=== PATIENT | female | born 1935 | race Caucasian/White ===

== ENCOUNTER → 2017-02-21 | Outpatient (CLI) | payer MEDICARE ==
--- NOTE | 2017-02-21 13:37 | MR ---
EXAMINATION TYPE: MR brain wo con DATE OF EXAM: 02/21/2017 COMPARISON: NONE HISTORY: mild cognitive impairment, dementia T1-weighted sagittal, T2, FLAIR, and diffusion axial, and T2 coronal coronal views of the brain are s ubmitted. There is no evidence of acute ischemia. There is no mass effect. Craniocervical junction maintained. Sella turcica has a normal appearance. Moderate generalized degenerative change with extensive abnormal signal throughout the white matter b ilaterally nonspecific pattern but most typical remote microvascular ischemia. Changes of chronic sinusitis noted. Abnormal signal within the veronica on the right may be artifactual due to motion with alternatively coul d be secondary to tiny area of remote ischemia. Changes of chronic sinusitis noted. No cerebellopontine angle mass. IMPRESSION: 1. Extensive diffuse white matter signal and degenerative change. White matter findings most typical of extensive remote ischemic white matter change.
== END | disposition home or self-care (01) ==
LOC: RADMRIMAIN 12:30
PROVIDERS: ATTEND Psychiatry & Neurology Neurology
DX: R90.82 White matter disease, unspecified (principal); G31.9 Degenerative disease of nervous system, unspecified
CPT/HCPCS: 70551

== ENCOUNTER → 2017-05-18 | Outpatient (CLI) | payer MEDICARE | END | disposition home or self-care (01) | LOC: LABWHC1 12:06 | PROVIDERS: ATTEND Psychiatry & Neurology Neurology | DX: G62.9 Polyneuropathy, unspecified (principal) | CPT/HCPCS: 36415; 82607 ==

== ENCOUNTER → 2017-05-20 | Outpatient (CLI) | payer MEDICARE ==
--- NOTE | 2017-05-20 12:52 | CT ---
EXAMINATION TYPE: CT brain wo con DATE OF EXAM: 05/20/2017 COMPARISON: Correlation MRI 02/21/2017 HISTORY: 82-year-old female Dizziness TECHNIQUE: Examination was done in axial plane without intravenous contrast. Coronal and sagittal r econstructions performed. CT DLP: 1064 mGycm Automated exposure control for dose reduction was used. FINDINGS: There is no evidence of acute intracranial hemorrhage, acute ischemic changes, mass, mass-effect, or extra-axial fluid collection. There is no effacement of cerebral sulci or basal subarachnoid cister ns. There is no midline shift. Conklin-white matter distinction is preserved. [id number] generalized supratentorial volume loss especially central cerebral atrophy with seco ndary mild prominence to the ventricular system. Moderate to severe confluent white matter hypodensit ies as seen on MRI. Paranasal sinuses and mastoid air cells are well pneumatized. Orbits and globes are intact. IMPRESSION: No acute intracranial abnormality seen. Central cerebral atrophy with secondary mild prominence to th e ventricular system. Moderate to severe confluent white matter changes as seen on MRI, likely relati ng to chronic small vessel ischemic disease.
--- NOTE | 2017-05-20 13:52 | US ---
EXAMINATION TYPE: US carotid duplex BILAT DATE OF EXAM: 05/20/2017 COMPARISON: NONE CLINICAL HISTORY: R55 NEAR SYNCOPE. Near Syncope EXAM MEASUREMENTS: RIGHT: Peak Systolic Velocity (PSV) cm/sec ----- Right CCA: 53.9 ----- Right ICA: 67.4 ----- Right ECA: 73.0 ICA/CCA ratio: 1.3 RIGHT: End Diastole cm/sec ----- Right CCA: 12.5 ----- Right ICA: 19.7 ----- Right ECA: 9.3 LEFT: Peak Systolic Velocity (PSV) cm/sec ----- Left CCA: 37.5 ----- Left ICA: 148.1 ----- Left ECA: 46.1 ICA/CCA ratio: 3.9 LEFT: End Diastole cm/sec ----- Left CCA: 12.5 ----- Left ICA: 44.6 ----- Left ECA: 6.1 VERTEBRALS (direction of flow): Right Vertebral: Antegrade Left Vertebral: Antegrade No significant stenosis seen, elevated velocities left ICA due to tortuosity IMPRESSION: No evidence for hemodynamically significant stenosis. Criteria for Assigning % of Stenosis / Diameter reduction (Estimation based on the indirect measurements of the internal carotid artery velocities (ICA PSV). 1. Normal (no stenosis)=ICA PSV < 125 cm/s: ratio < 2.0: ICA EDV<40 cm/s. 2. Less than 50% stenosis=ICA PSV < 125 cm/s: ratio < 2.0: ICA EDV<40 cm/s. 3. 50 to 69% stenosis=ICA PSV of 125 to 230 cm/s: ration 2.0 ? 4.0: ICA EDV 40-100 cm/s. 4. Greater than 70% stenosis to near occlusion= ICA PSV > 230 cm/s: ratio > 4.0: ICA EDV > 100 cm/s. 5. Near occlusion= ICA PSV velocities may be low or undetectable: variable ratio and ICA EDV. 6. Total occlusion=unable to detect flow.
--- NOTE | 2017-05-21 06:59 | ECHOF ---
Referral Reason:R55 near syncope MEASUREMENTS -------- HEIGHT: 167.6 cm WEIGHT: 54.4 kg BP: 197/86 RVIDd: 3.0 cm (< 3.3) IVSd: 1.0 cm (0.6 - 1.1) LVIDd: 3.7 cm (3.9 - 5.3) LVPWd: 1.1 cm (0.6 - 1.1) IVSs: 1.7 cm LVIDs: 2.4 cm LVPWs: 1.5 cm LA Diam: 3.1 cm (2.7 - 3.8) LAESV Index (A-L): 25.01 ml/m Ao Diam: 3.3 cm (2.0 - 3.7) AV Cusp: 2.0 cm (1.5 - 2.6) MV EXCURSION: 16.399 mm (> 18.000) MV EF SLOPE: 82 mm/s (70 - 150) EPSS: 0.4 cm MV E Geovany: 0.63 m/s MV DecT: 385 ms MV A Geovany: 0.69 m/s MV E/A Ratio: 0.92 RAP: 5.00 mmHg RVSP: 26.36 mmHg FINDINGS -------- Sinus rhythm. This was a technically good study. The left ventricular size is normal. There is borderline concentric left ventricular hypertrophy. Overall left ventricular systolic function is normal with, an EF between 55 - 60 %. The right ventricle is normal in size. Normal LA size by volume 22+/-6 ml/m2. The right atrium is normal in size. There is mild aortic valve sclerosis. There is trace mitral regurgitation. Mild tricuspid regurgitation present. Right ventricular systolic pressure is normal at < 35 mmHg. Trace/mild (physiologic) pulmonic regurgitation. The aortic root size is normal. Normal inferior vena cava with normal inspiratory collapse consistent with estimated right atrial pressure of 5 mmHg. There is no pericardial effusion. CONCLUSIONS -------- 1. Sinus rhythm. 2. There is trace mitral regurgitation. 3. Mild tricuspid regurgitation present. 4. Right ventricular systolic pressure is normal at < 35 mmHg. 5. Trace/mild (physiologic) pulmonic regurgitation. 6. The aortic root size is normal. 7. Normal inferior vena cava with normal inspiratory collapse consistent with estimated right atrial pressure of 5 mmHg. 8. There is no pericardial effusion. 9. This was a technically good study. 10. The left ventricular size is normal. 11. There is borderline concentric left ventricular hypertrophy. 12. Overall left ventricular systolic function is normal with, an EF between 55 - 60 %. 13. The right ventricle is normal in size. 14. Normal LA size by volume 22+/-6 ml/m2. 15. The right atrium is normal in size. 16. There is mild aortic valve sclerosis. PROGRAM MANAGEMENT SPECIALIST: Candy Rivero RDCS
== END | disposition home or self-care (01) ==
LOC: RADECHMAIN 11:34
PROVIDERS: ATTEND Family Medicine
DX: G31.9 Degenerative disease of nervous system, unspecified (principal); R90.82 White matter disease, unspecified
CPT/HCPCS: 70450; 93306; 93880

== ENCOUNTER 2018-12-13 12:28 | Inpatient (IN) | payer MEDICARE ==
[2018-12-13] MEDS ORDERED: SODIUM CHLORIDE 0.9% 1,000 ML IV STA ×2 (12:34→13:15)
--- NOTE | 2018-12-13 12:45 | CT ---
EXAMINATION TYPE: CODE STROKE: CT brain wo contr DATE OF EXAM: 12/13/2018 COMPARISON: 05/20/2017 HISTORY: Code Stroke CT DLP: 1099.[address] of the brain was performed. The ventricles, basal cisterns and sulci overlying the cerebral convexities demonstrate mild to moder ate enlargement. There is no evidence for intracranial hemorrhage or sulcal effacement. There is decreased attenuation about the periventricular white matter and deep white matter of both c erebral hemispheres, compatible with chronic small vessel ischemia. Differential diagnosis does inclu de demyelination. No mass effects are seen.No midline shift. Osseous calvarium is intact. If symptoms persist consider MRI. IMPRESSION: 1. Age related atrophic and chronic small vessel ischemic change without acute intracranial process s een at this time.
[2018-12-13] MEDS ORDERED: SODIUM CHLORIDE 0.9% 500 ML 500 ML IV STA (13:15)
[2018-12-13] MEDS ORDERED: LORazepam 2 MG/ML INJ IV STA (13:15)
[2018-12-13 13:17] LABS: Glucose,Whole Blood 82 mg/dL (75-99)
--- NOTE | 2018-12-13 13:20 | ED ---
Neuro HPI - General Chief Complaint: Neuro Symptoms/Deficit Stated Complaint: Stroke Time Seen by Provider: 12/13/18 12:34 Source: EMS, RN notes reviewed, old records reviewed Mode of arrival: EMS Limitations: altered mental status - History of Present Illness Is the patient presenting with stroke symptoms?: No -: minutes(s) Initial Comments: This is an 81-year-old female the ER for evaluation, patient's poor strain brought in by EMS. Patient's brought in by EMS for unresponsiveness. Possible syncopal event, unsure of events surrounding, patient with history history obtained from patient's chart prior charting as well as EMS History of same: No Place: home Severity: moderate Quality: weak Improves With: none Worsens With: none On Anticoagulants: No Context: sudden onset Associated Symptoms: confusion, weakness Treatments Prior to Arrival: none - Related Data Home Medications: Home Medications Medication Instructions Recorded Confirmed ALPRAZolam [Xanax] 0.5 mg PO HS 12/13/18 12/13/18 Aspirin EC [Ecotrin Low Dose] 81 mg PO DAILY 12/13/18 12/13/18 Atenolol [Tenormin] 25 mg PO BID 12/13/18 12/13/18 Donepezil [Aricept] 2.5 mg PO HS 12/13/18 12/13/18 Lisinopril [Zestril] 10 mg PO DAILY 12/13/18 12/13/18 Memantine [Namenda] 10 mg PO BID 12/13/18 12/13/18 Sulfamethox-Tmp 800-160Mg [Bactrim 1 tab PO Q12HR 12/13/18 12/13/18 DS 800-160 mg] Vitamin B Complex 1 cap PO DAILY 12/13/18 12/13/18 Allergies/Adverse Reactions: Allergies Allergy/AdvReac Type Severity Reaction Status Date / Time No Known Allergies Allergy Verified 12/13/18 13:56 Review of Systems ROS Statement: Those systems with pertinent positive or pertinent negative responses have been documented in the HPI. ROS Other: All systems not noted in ROS Statement are negative. General Exam Limitations: altered mental status General appearance: alert, in no apparent distress Head exam: Present: atraumatic, normocephalic, normal inspection Eye exam: Present: normal appearance, PERRL, EOMI. Absent: scleral icterus, conjunctival injection, periorbital swelling ENT exam: Present: normal exam, mucous membranes moist Neck exam: Present: normal inspection. Absent: tenderness, meningismus, lymphadenopathy Respiratory exam: Present: normal lung sounds bilaterally. Absent: respiratory distress, wheezes, rales, rhonchi, stridor Cardiovascular Exam: Present: regular rate, normal rhythm, normal heart sounds. Absent: systolic murmur, diastolic murmur, rubs, gallop, clicks GI/Abdominal exam: Present: soft, normal bowel sounds. Absent: distended, tenderness, guarding, rebound, rigid Extremities exam: Present: normal inspection, full ROM, normal capillary refill. Absent: tenderness, pedal edema, joint swelling, calf tenderness Back exam: Present: normal inspection Neurological exam: Present: alert, oriented X3, CN II-XII intact Psychiatric exam: Present: normal affect, normal mood Skin exam: Present: warm, dry, intact, normal color. Absent: rash Stroke MDM - Lab Data Result diagrams: 12/13/18 13:05 12/13/18 13:05 Lab Results 12/13/18 12/13/18 12/13/18 Range/Units 13:05 13:05 13:05 WBC 5.1 (3.8-10.6) k/uL RBC 4.69 (3.80-5.40) m/uL Hgb 14.3 (11.4-16.0) gm/dL Hct 42.4 (34.0-46.0) % MCV 90.5 (80.0-100.0) fL MCH 30.5 (25.0-35.0) pg MCHC 33.7 (31.0-37.0) g/dL RDW 14.4 (11.5-15.5) % Plt Count 106 L (150-450) k/uL Neutrophils % 74 % Lymphocytes % 15 % Monocytes % 6 % Eosinophils % 3 % Basophils % 0 % Neutrophils # 3.8 (1.3-7.7) k/uL Lymphocytes # 0.8 L (1.0-4.8) k/uL Monocytes # 0.3 (0-1.0) k/uL Eosinophils # 0.2 (0-0.7) k/uL Basophils # 0.0 (0-0.2) k/uL PT (9.0-12.0) sec INR (<1.2) APTT (22.0-30.0) sec Sodium 135 L (137-145) mmol/L Potassium 4.9 (3.5-5.1) mmol/L Chloride 99 (98-107) mmol/L Carbon Dioxide 22 (22-30) mmol/L Anion Gap 14 mmol/L BUN 19 H (7-17) mg/dL Creatinine 1.64 H (0.52-1.04) mg/dL Est GFR (CKD-EPI)AfAm 33 (>60 ml/min/1.73 sqM) Est GFR (CKD-EPI)NonAf 29 (>60 ml/min/1.73 sqM) Glucose 105 H (74-99) mg/dL POC Glucose (mg/dL) 82 (75-99) mg/dL POC Glu Demand Inspector ID Allyssa Whitaker Calcium 9.4 (8.4-10.2) mg/dL Phosphorus (2.5-4.5) mg/dL Magnesium (1.6-2.3) mg/dL Total Bilirubin 0.7 (0.2-1.3) mg/dL AST 31 (14-36) U/L ALT 22 (9-52) U/L Alkaline Phosphatase 141 H (38-126) U/L Total Creatine Kinase (30-135) U/L CK-MB (CK-2) (0.0-2.4) ng/mL CK-MB (CK-2) Rel Index Troponin I (0.000-0.034) ng/mL Total Protein 6.7 (6.3-8.2) g/dL Albumin 4.0 (3.5-5.0) g/dL Urine Color Urine Appearance (Clear) Urine pH (5.0-8.0) Ur Specific [place] (1.001-1.035) Urine Protein (Negative) Urine Glucose (UA) (Negative) Urine Ketones (Negative) Urine Blood (Negative) Urine Nitrite (Negative) Urine Bilirubin (Negative) Urine Urobilinogen (<2.0) mg/dL Ur Leukocyte Esterase (Negative) 12/13/18 12/13/18 12/13/18 Range/Units 13:05 13:05 13:05 WBC (3.8-10.6) k/uL RBC (3.80-5.40) m/uL Hgb (11.4-16.0) gm/dL Hct (34.0-46.0) % MCV (80.0-100.0) fL MCH (25.0-35.0) pg MCHC (31.0-37.0) g/dL RDW (11.5-15.5) % Plt Count (150-450) k/uL Neutrophils % % Lymphocytes % % Monocytes % % Eosinophils % % Basophils % % Neutrophils # (1.3-7.7) k/uL Lymphocytes # (1.0-4.8) k/uL Monocytes # (0-1.0) k/uL Eosinophils # (0-0.7) k/uL Basophils # (0-0.2) k/uL PT 11.6 (9.0-12.0) sec INR 1.1 (<1.2) APTT 20.7 L (22.0-30.0) sec Sodium (137-145) mmol/L Potassium (3.5-5.1) mmol/L Chloride (98-107) mmol/L Carbon Dioxide (22-30) mmol/L Anion Gap mmol/L BUN (7-17) mg/dL Creatinine (0.52-1.04) mg/dL Est GFR (CKD-EPI)AfAm (>60 ml/min/1.73 sqM) Est GFR (CKD-EPI)NonAf (>60 ml/min/1.73 sqM) Glucose (74-99) mg/dL POC Glucose (mg/dL) (75-99) mg/dL POC Glu Demand Inspector ID Calcium (8.4-10.2) mg/dL Phosphorus 4.8 H (2.5-4.5) mg/dL Magnesium 2.0 (1.6-2.3) mg/dL Total Bilirubin (0.2-1.3) mg/dL AST (14-36) U/L ALT (9-52) U/L Alkaline Phosphatase (38-126) U/L Total Creatine Kinase 106 (30-135) U/L CK-MB (CK-2) 1.1 (0.0-2.4) ng/mL CK-MB (CK-2) Rel Index 1.0 Troponin I 0.016 (0.000-0.034) ng/mL Total Protein (6.3-8.2) g/dL Albumin (3.5-5.0) g/dL Urine Color Urine Appearance (Clear) Urine pH (5.0-8.0) Ur Specific [place] (1.001-1.035) Urine Protein (Negative) Urine Glucose (UA) (Negative) Urine Ketones (Negative) Urine Blood (Negative) Urine Nitrite (Negative) Urine Bilirubin (Negative) Urine Urobilinogen (<2.0) mg/dL Ur Leukocyte Esterase (Negative) 12/13/18 Range/Units 15:25 WBC (3.8-10.6) k/uL RBC (3.80-5.40) m/uL Hgb (11.4-16.0) gm/dL Hct (34.0-46.0) % MCV (80.0-100.0) fL MCH (25.0-35.0) pg MCHC (31.0-37.0) g/dL RDW (11.5-15.5) % Plt Count (150-450) k/uL Neutrophils % % Lymphocytes % % Monocytes % % Eosinophils % % Basophils % % Neutrophils # (1.3-7.7) k/uL Lymphocytes # (1.0-4.8) k/uL Monocytes # (0-1.0) k/uL Eosinophils # (0-0.7) k/uL Basophils # (0-0.2) k/uL PT (9.0-12.0) sec INR (<1.2) APTT (22.0-30.0) sec Sodium (137-145) mmol/L Potassium (3.5-5.1) mmol/L Chloride (98-107) mmol/L Carbon Dioxide (22-30) mmol/L Anion Gap mmol/L BUN (7-17) mg/dL Creatinine (0.52-1.04) mg/dL Est GFR (CKD-EPI)AfAm (>60 ml/min/1.73 sqM) Est GFR (CKD-EPI)NonAf (>60 ml/min/1.73 sqM) Glucose (74-99) mg/dL POC Glucose (mg/dL) (75-99) mg/dL POC Glu Demand Inspector ID Calcium (8.4-10.2) mg/dL Phosphorus (2.5-4.5) mg/dL Magnesium (1.6-2.3) mg/dL Total Bilirubin (0.2-1.3) mg/dL AST (14-36) U/L ALT (9-52) U/L Alkaline Phosphatase (38-126) U/L Total Creatine Kinase (30-135) U/L CK-MB (CK-2) (0.0-2.4) ng/mL CK-MB (CK-2) Rel Index Troponin I (0.000-0.034) ng/mL Total Protein (6.3-8.2) g/dL Albumin (3.5-5.0) g/dL Urine Color Yellow Urine Appearance Clear (Clear) Urine pH 6.0 (5.0-8.0) Ur Specific [place] 1.035 (1.001-1.035) Urine Protein Negative (Negative) Urine Glucose (UA) Negative (Negative) Urine Ketones Negative (Negative) Urine Blood Negative (Negative) Urine Nitrite Negative (Negative) Urine Bilirubin Negative (Negative) Urine Urobilinogen <2.0 (<2.0) mg/dL Ur Leukocyte Esterase Negative (Negative) - NIH Stroke Scale 1a. Level of Consciousness: (0) alert 1b. LOC Questions: (0) answers correctly 1c. LOC Commands: (0) performs tasks correctly 2. Best Gaze: (0) normal 3. Visual: (0) no visual loss 4. Facial Palsy: (0) normal symmetrical movement 5a. Motor Arm Left: (0) no drift 5b. Motor Arm Right: (0) no drift 6a. Motor Leg Left: (0) no drift 6b. Motor Leg Right: (0) no drift 7. Limb Ataxia: (0) absent 8. Sensory: (0) normal 9. Best Language: (0) no aphasia (Patient speaks little at baseline) 10. Dysarthria: (0) normal 11. Extinction/Inattention: (0) no abnormality - Thrombolytic Inclusion/Exclusion Thrombolytic Exclusion Criteria: Onset of Symptoms Unknown - Medical Decision Making 83 female the ER for evasive syncopal event patient remains hypertensive will admit for blood pressure control and monitoring of recurrent syncope. - Radiology Data Radiology results: report reviewed (ET brain CTA had not can chest x-rays negative for acute disease), image reviewed - EKG Data -: EKG Interpreted by Me (EKG shows sinus rhythm rate of 65, NV 132, QRS 64, QTc 453) Past Medical History Past Medical History: Unable to Obtain History of Any Multi-Drug Resistant Organisms: Unobtainable Past Surgical History: Unable to Obtain Past Psychological History: Unable to Obtain Smoking Status: Unknown if ever smoked Past Alcohol Use History: Unable to Obtain Past Drug Use History: Unable to Obtain Course Vital Signs 12/13/18 12/13/18 12/13/18 12:40 12:44 12:55 Temperature Pulse Rate 63 42 L 64 Respiratory 18 18 18 Rate Blood Pressure 122/70 154/74 118/59 O2 Sat by Pulse Oximetry 12/13/18 12/13/18 12/13/18 13:00 13:15 13:30 Temperature 98.7 F Pulse Rate 63 58 L 62 Respiratory 18 16 16 Rate Blood Pressure 138/101 136/117 139/107 O2 Sat by Pulse 98 95 Oximetry 12/13/18 12/13/18 12/13/18 13:45 14:00 14:53 Temperature 98.1 F Pulse Rate 59 L 59 L 59 L Respiratory 16 18 16 Rate Blood Pressure 162/107 151/98 119/77 O2 Sat by Pulse 96 96 95 Oximetry 12/13/18 12/13/18 12/13/18 15:10 16:00 17:07 Temperature Pulse Rate 58 L 68 72 Respiratory 20 20 16 Rate Blood Pressure 158/101 156/89 174/104 O2 Sat by Pulse 99 99 94 L Oximetry - Reevaluation(s) Reevaluation #1: 12/13/18 17:45 Medical record is reviewed Reevaluation #2: 12/13/18 17:45 Spoke with family at length regarding findings, questions are answered Disposition Clinical Impression: Syncope, Weakness, Hypertension, Altered mental state Disposition: ADMITTED IP TO THIS [facility] Condition: Fair Is patient prescribed a controlled substance at d/c from ED?: No Referrals: Rodolfo Ryan DO [Primary Care Provider] - 1-2 days
[2018-12-13 13:24] LABS: Basophils % (A) 0 %; Eosinophils # (A) 0.2 k/uL (0-0.7); Eosinophils % (A) 3 %; HCT 42.4 % (34.0-46.0); HGB 14.3 gm/dL (11.4-16.0); Lymphocytes # (A) 0.8 k/uL (1.0-4.8); Lymphocytes % (A) 15 %; MCH 30.5 pg (25.0-35.0); MCHC 33.7 g/dL (31.0-37.0); MCV 90.5 fL (80.0-100.0); Mean Platelet Volume 8.8; Monocytes # (A) 0.3 k/uL (0-1.0); Monocytes % (A) 6 %; Neutrophils # (A) 3.8 k/uL (1.3-7.7); Neutrophils % (A) 74 %; Platelet Count 106 k/uL (150-450); RBC 4.69 m/uL (3.80-5.40); RDW 14.4 % (11.5-15.5); WBC 5.1 k/uL (3.8-10.6)
[2018-12-13 13:35] LABS: Calcium 9.4 mg/dL (8.4-10.2); Potassium 4.9 mmol/L (3.5-5.1); Total Bilirubin 0.7 mg/dL (0.2-1.3); Total Protein 6.7 g/dL (6.3-8.2)
--- NOTE | 2018-12-13 13:37 | CT ---
EXAMINATION TYPE: CODE STROKE: CTA head neck DATE OF EXAM: 12/13/2018 COMPARISON: None HISTORY: Stroke CT DLP: 309.5 mGycm CONTRAST: Performed without and with IV Contrast, patient injected with 65 ml mL of Isovue 370. Combination Contrast CTA cervical carotids and [place] CTA cervical carotids with 3-D recons truction Contrast CTA of the cervical carotids was performed 3-D reconstruction imaging obtained at a separate workstation. Right carotid system: Mild plaque is seen of the right common carotid artery. There is mild plaque a lso noted at the carotid bulb and proximal ICA. No significant diameter reduction. ECA is patent. Right vertebral artery appears unremarkable. Left carotid system: Mild plaque is seen of the left common carotid artery. There is mild plaque als o noted at the carotid bulb and proximal ICA. No significant diameter reduction. ECA is patent. Lef t vertebral artery appears unremarkable. IMPRESSION: 1. No significant diameter reduction to account for the patient's symptoms. CTA [place] with 3-D reconstruction Contrast CTA of the [place] was performed 3-D reconstruction imaging obtained at a separate workstation. Vertebrobasilar system as well as intracranial portions of the internal carotid arteries and their ma sheree tributaries are patent. I do not see evidence for sizable aneurysm or vascular malformation. Pl ease note MRI provides greater sensitivity and specificity. Visualized brain appears grossly unremar kable. IMPRESSION: 1. No siginificant abnormality.
[2018-12-13 13:49] LABS: INR 1.1 (<1.2); Prothrombin Time 11.6 sec (9.0-12.0)
[2018-12-13 13:53] LABS: Partial Thromboplastin Time 20.7 sec (22.0-30.0)
[2018-12-13 13:59] LABS: Creatine Kinase MB 1.1 ng/mL (0.0-2.4); Troponin I 0.016 ng/mL (0.000-0.034)
[2018-12-13 14:23] LABS: Phosphorus 4.8 mg/dL (2.5-4.5)
--- NOTE | 2018-12-13 15:08 | XR ---
EXAMINATION TYPE: XR chest 1V DATE OF EXAM: 12/13/2018 COMPARISON: Prior chest x-ray 08/29/2013 HISTORY: Altered mental status TECHNIQUE: Single frontal view of the chest is obtained. FINDINGS: Patient is rotated. There are overlying cardiac leads. Lung volumes are somewhat lower. The re is evidence of old granulomatous disease as on prior. There is no focal air space opacity, pleural effusion, or pneumothorax seen. The cardiac silhouette size is within normal limits. The osseous structures are intact. IMPRESSION: No acute process.
[2018-12-13 15:56] LABS: Appearance,Urine Clear (Clear); Bilirubin,Urine Negative (Negative); Blood,Urine Negative (Negative); Color,Urine Yellow; Glucose,Urine (UA) Negative (Negative); Ketones,Urine Negative (Negative); Leukocyte Esterase,Urine Negative (Negative); Nitrite,Urine Negative (Negative); Protein,Urine Negative (Negative); Specific Gravity,Urine 1.035 (1.001-1.035); Urobilinogen,Urine <2.0 mg/dL (<2.0)
[2018-12-13] MEDS ORDERED: NITROGLYCERIN SL TABS 0.4 MG TAB SUBLINGUAL PRN (17:46)
[2018-12-13] MEDS ORDERED: LABETALOL SYRINGE 5 MG/ML IVP STA (17:47)
[2018-12-13 20:29] VITALS: BMI 19.9
[2018-12-13] MEDS ORDERED: HALOPERIDOL 5 MG TAB PO PRN (23:47)
[2018-12-14 04:20] LABS: Cholesterol 225 mg/dL (<200); HDL Cholesterol 39 mg/dL (40-60); LDL Cholesterol,Calculated 161 mg/dL (0-99); Triglycerides 124 mg/dL (<150)
[2018-12-14 05:35] LABS: Basophils % (A) 0 %; Eosinophils # (A) 0.1 k/uL (0-0.7); Eosinophils % (A) 0 %; HGB 14.9 gm/dL (11.4-16.0); Lymphocytes # (A) 0.7 k/uL (1.0-4.8); Lymphocytes % (A) 7 %; MCH 29.6 pg (25.0-35.0); MCHC 32.4 g/dL (31.0-37.0); MCV 91.4 fL (80.0-100.0); Mean Platelet Volume 8.4; Monocytes # (A) 0.5 k/uL (0-1.0); Monocytes % (A) 5 %; Neutrophils # (A) 9.4 k/uL (1.3-7.7); Neutrophils % (A) 87 %; RBC 5.03 m/uL (3.80-5.40); RDW 13.7 % (11.5-15.5); WBC 10.8 k/uL (3.8-10.6)
[2018-12-14 05:42] LABS: Calcium 8.6 mg/dL (8.4-10.2)
[2018-12-14 05:49] LABS: Potassium 4.8 mmol/L (3.5-5.1)
[2018-12-14 06:39] LABS: Platelet Count 86 k/uL (150-450)
[2018-12-14] MEDS ORDERED: NON-FORMULARY DRUG (Vitamin B Complex [Vitamin B Complex] 1 CAP) PO SCH (09:00)
[2018-12-14] MEDS ORDERED: ASPIRIN 325 MG TAB PO SCH (09:00)
[2018-12-14] MEDS ORDERED: MEMANTINE 10 MG TAB PO SCH (09:00)
[2018-12-14] MEDS: ASPIRIN 81 MG PO SCH (09:19)
[2018-12-14] MEDS: LISINOPRIL 10 MG TAB PO SCH (09:47)
[2018-12-14] MEDS: ATENOLOL 25 MG TAB PO SCH ×2 (09:47→19:54)
--- NOTE | 2018-12-14 11:06 | P.CRDCN ---
History of Present Illness History of present illness: This is Dr. Álvarez dictating a consult on this patient The patient was interviewed and examined by me IMPRESSION / ASSESSMENT: Abnormal troponins Currently pain-free Patient admitted with reduced level of consciousness but has baseline dementia Atrial tachycardia with RVR, patient did not receive atenolol since admission, restarted now PLAN: TSH level Beta blockers Observe on telemetry for any bradycardia arrhythmias on beta blockers HPI Patient is a very poor historian. She is brought in by EMS for unresponsiveness possible syncopal spell. She does not remember anything at all and cannot give me a history At this time of my examination she denied any shortness of breath, she did not appear to be short of breath she denied any chest discomfort On telemetry. Not seen any bradycardia arrhythmias but later this morning atrial tachycardia with RVR was noted. She had not been restarted on atenolol I asked the nurse to restart atenolol as well as lisinopril ROS: No fever chills or rigors, no cough, phlegm or expectoration, no nausea, vomiting or diarrhea, no hematuria, dysuria, no musculoskeletal complaints, no strokes or seizures, no skin lesions. EXAMINATION: Frail lady, temperature 99.8F, pulse rate in the 60s and 70s in sinus rhythm, blood pressure 143/86 mmHg Breath sounds are reduced bilaterally poor respiratory effort Heart sounds are normal normal S1 normal S2 Abdomen is soft nontender Extended is warm She is resting comfortably in bed no orthopnea REVIEW OF LABS, ECG & MEDICAL DATA White count 10.8 thousand, hemoglobin 14.9 Sodium 137 potassium 4.8 BUN 17 creatinine 1.0 to Troponin 0.016, 0.049, 0.071 Twelve-lead ECG shows significant baseline artifact but it is sinus rhythm in the 60s narrow QRS normal WA interval Past Medical History Past Medical History: Memory Impairment, Mitral Valve Prolapse (MVP), Skin Disorder Additional Past Medical History / Comment(s): recent scabies History of Any Multi-Drug Resistant Organisms: Unobtainable Past Surgical History: Unable to Obtain Past Anesthesia/Blood Transfusion Reactions: No Reported Reaction Past Psychological History: Unable to Obtain Smoking Status: Former smoker Past Alcohol Use History: Unable to Obtain Past Drug Use History: Unable to Obtain - Past Family History Father Family Medical History: Memory Impairment Mother Family Medical History: Unable to Obtain Medications and Allergies Home Medications Medication Instructions Recorded Confirmed Type ALPRAZolam [Xanax] 0.5 mg PO HS 12/13/18 12/13/18 History Aspirin EC [Ecotrin Low Dose] 81 mg PO DAILY 12/13/18 12/13/18 History Atenolol [Tenormin] 25 mg PO BID 12/13/18 12/13/18 History Donepezil [Aricept] 2.5 mg PO HS 12/13/18 12/13/18 History Lisinopril [Zestril] 10 mg PO DAILY 12/13/18 12/13/18 History Memantine [Namenda] 10 mg PO BID 12/13/18 12/13/18 History Sulfamethox-Tmp 800-160Mg [Bactrim 1 tab PO Q12HR 12/13/18 12/13/18 History DS 800-160 mg] Vitamin B Complex 1 cap PO DAILY 12/13/18 12/13/18 History Allergies Allergy/AdvReac Type Severity Reaction Status Date / Time No Known Allergies Allergy Verified 12/13/18 13:56 Physical Exam Vitals: Vital Signs Temp Pulse Pulse Resp BP BP BP 12/14/18 10:56 12/14/18 04:00 70 18 133/81 12/14/18 00:00 99.8 F H 66 18 143/86 12/13/18 23:58 18 12/13/18 21:00 16 12/13/18 20:00 78 18 178/77 12/13/18 19:50 97.9 F 82 16 149/82 12/13/18 19:15 98.2 F 75 20 140/89 12/13/18 18:57 97.9 F 82 16 183/104 12/13/18 17:07 72 16 174/104 12/13/18 16:00 68 20 156/89 12/13/18 15:10 58 L 20 158/101 12/13/18 14:53 98.1 F 59 L 16 119/77 12/13/18 14:00 59 L 18 151/98 12/13/18 13:45 59 L 16 162/107 12/13/18 13:30 62 16 139/107 12/13/18 13:15 58 L 16 136/117 12/13/18 13:00 98.7 F 63 18 138/101 12/13/18 12:55 64 18 118/59 12/13/18 12:44 42 L 18 154/74 12/13/18 12:40 63 18 122/70 BP Pulse Ox 12/14/18 10:56 92 L 12/14/18 04:00 94 L 12/14/18 00:00 194/79 98 12/13/18 23:58 12/13/18 21:00 12/13/18 20:00 12/13/18 19:50 97 12/13/18 19:15 99 12/13/18 18:57 95 12/13/18 17:07 94 L 12/13/18 16:00 99 12/13/18 15:10 99 12/13/18 14:53 95 12/13/18 14:00 96 12/13/18 13:45 96 12/13/18 13:30 12/13/18 13:15 95 12/13/18 13:00 98 12/13/18 12:55 12/13/18 12:44 12/13/18 12:40 Intake and Output 12/13/18 12/14/18 12/14/18 22:59 06:59 14:59 Intake Total 120 Balance 120 Intake: Oral 120 Other: Voiding Method Incontinent Incontinent # Voids 1 1 0 # Bowel Movements 1 2 Weight 51.9 kg Results 12/14/18 04:55 12/14/18 05:08 Cardiac Enzymes 12/13/18 12/13/18 12/13/18 Range/Units 13:05 13:05 19:21 AST 31 (14-36) U/L CK-MB (CK-2) 1.1 (0.0-2.4) ng/mL Troponin I 0.016 0.049 H* (0.000-0.034) ng/mL 12/14/18 Range/Units 01:32 AST (14-36) U/L CK-MB (CK-2) (0.0-2.4) ng/mL Troponin I 0.071 H* (0.000-0.034) ng/mL Coagulation 12/13/18 Range/Units 13:05 PT 11.6 (9.0-12.0) sec APTT 20.7 L (22.0-30.0) sec Lipids 12/13/18 Range/Units 13:05 Triglycerides 124 (<150) mg/dL Cholesterol 225 H (<200) mg/dL HDL Cholesterol 39 L (40-60) mg/dL CBC 12/13/18 12/14/18 Range/Units 13:05 04:55 WBC 5.1 10.8 H (3.8-10.6) k/uL RBC 4.69 5.03 (3.80-5.40) m/uL Hgb 14.3 14.9 (11.4-16.0) gm/dL Hct 42.4 46.0 (34.0-46.0) % Plt Count 106 L 86 L (150-450) k/uL Comprehensive Metabolic Panel 12/13/18 12/14/18 Range/Units 13:05 05:08 Sodium 135 L 137 (137-145) mmol/L Potassium 4.9 4.8 (3.5-5.1) mmol/L Chloride 99 104 (98-107) mmol/L Carbon Dioxide 22 21 L (22-30) mmol/L BUN 19 H 17 (7-17) mg/dL Creatinine 1.64 H 1.02 (0.52-1.04) mg/dL Glucose 105 H 103 H (74-99) mg/dL Calcium 9.4 8.6 (8.4-10.2) mg/dL AST 31 (14-36) U/L ALT 22 (9-52) U/L Alkaline Phosphatase 141 H (38-126) U/L Total Protein 6.7 (6.3-8.2) g/dL Albumin 4.0 (3.5-5.0) g/dL Current Medications Generic Name Dose Route Start Last Admin Trade Name Freq PRN Reason Stop Dose Admin Alprazolam 0.5 mg 12/14/18 21:00 Xanax PO HS JOHNNY Aspirin 81 mg 12/14/18 09:00 12/14/18 09:19 Aspirin PO Not Given DAILY JOHNNY Atenolol 25 mg 12/14/18 09:00 12/14/18 09:47 Tenormin PO 25 mg BID JOHNNY Administration Donepezil HCl 2.5 mg 12/14/18 21:00 Aricept PO HS JOHNNY Haloperidol 1 mg 12/13/18 23:47 Haldol PO Q6H PRN Agitation Lisinopril 10 mg 12/14/18 09:00 12/14/18 09:47 Zestril PO 10 mg DAILY JOHNNY Administration Memantine 10 mg 12/14/18 09:00 12/14/18 09:47 Namenda PO 10 mg BID JOHNNY Administration Nitroglycerin 0.4 mg 12/13/18 17:46 Nitrostat SUBLINGUAL Q5M PRN Chest Pain Intake and Output 12/13/18 12/14/18 12/14/18 22:59 06:59 14:59 Intake Total 120 Balance 120 Intake: Oral 120 Other: Voiding Method Incontinent Incontinent # Voids 1 1 0 # Bowel Movements 1 2 Weight 51.9 kg 12/14/18 04:55 12/14/18 05:08
[2018-12-14] MEDS ORDERED: PERMETHRIN 5% CREAM 60 GM TUBE TOPICAL ONE (12:39)
--- NOTE | 2018-12-14 13:15 | XR ---
EXAMINATION TYPE: XR chest 1V portable DATE OF EXAM: 12/14/2018 HISTORY: Shortness of breath. COMPARISON: 12/13/2018 TECHNIQUE: Single view of the chest is submitted. FINDINGS: Demonstrated are scattered senescent parenchymal change. There is no evidence for focal infiltrate. The heart is stable. Hilar and mediastinal structures are within normal limits. Degenerative changes are seen of the dorsal spine. IMPRESSION: 1. Chronic changes without evidence for acute pulmonary disease.
--- NOTE | 2018-12-14 14:01 | P.HPIM ---
History of Present Illness H&P Date: 12/14/18 Chief Complaint: Mental status change, with complete syncope This is an 83-year-old patient patient off Dr. Ryan and Dr. Martinez, seen in the emergency room secondary to unresponsiveness. She she has underlying history of advanced Alzheimer's dementia, followed closely by Dr. Martinez he is seeing both benazepril and Namenda, was at home with family members when she was observed to have complete loss of consciousness, accompanied by extensors stiffness, lasting for approximately 8 minutes, the daughter who was there was worried that she has shallow breathing, and she stopped breathing for a while, and thereafter has spontaneous breathing without any intervention. She is unresponsive to painful stimuli, the EMS was brought in, again the patient was unresponsive, no new medications were started initially prior to admission, there is no diarrhea or vomiting no fever no chills, no history of seizures in the past, no history of strokes in the past. No information can be gathered from the patient as she has lack of verbal verbal and claudication skills. She can answer to simple questions with yes or no, when it comes pain otherwise. There is no edema, no anorexia, no respiratory events, patient does not have any dysphagia. Emergency room she was observed for telemetry monitoring, no evidence of bradycardia., Blood pressure was 194/179 on and 3, oxygen was 93% on room air, EKG shows normal sinus rhythm with age undetermined anterior infarct with Q waves, V2 V3, no QT prolongation chest x-ray shows no acute disease, CAT scan of the brain shows age-related atrophic and chronic small vessel ischemic change without any acute intracranial process CTA of the neck shows no significant diameter reduction on both carotid system, mild plaques noted CTA mary[place] of [place] shows vertebral basilar system is patent no sizable aneurysms or vascular malformation noted. Nursing staff is concerned while in the hospital that she has a rash, in the abdomen and lower extremities, with scabies exposure, they have utilize one treatment of scabies treatment, patient currently is on contact precautions, cardiology to see the patient regarding the arrhythmias, and syncope, family is aware that there is no neurology on staff in this hospital, however she was last seen by Dr. Martinez for titration of her memory medication approximately 3 weeks ago no history of seizures in the past. She is currently afebrile, need to rule out any aspirin or events, entry troponin the ER was 0.0 49 and 0.071, Review of Systems ROS unobtainable: due to mental status Constitutional: Reports as per HPI, Reports anorexia, Denies chills, Denies chronic headaches, Denies chronic pain, Denies daytime sleepiness, Denies fatigue, Denies fever, Denies lethargy, Denies malaise, Denies night sweats, Denies poor appetite, Denies sweats, Denies weakness, Denies weight gain, Denies weight loss Ears, nose, mouth and throat: Reports as per HPI Cardiovascular: Reports as per HPI, Denies chest pain, Denies claudication, Denies decreased exercise tolerance, Denies dyspnea on exertion, Denies edema, Denies high blood pressure, Denies irregular heart beat, Denies leg edema, Denies lightheadedness, Denies orthopnea, Denies palpitations, Denies paroxysmal nocturnal dyspnea, Denies phlebitis, Denies rapid heart beat, Denies shortness of breath, Denies syncope Respiratory: Reports as per HPI, Denies congestion, Denies cough, Denies cough with sputum, Denies dyspnea, Denies excessive sputum, Denies hemoptysis, Denies home oxygen, Denies pain, Denies pain on inspiration, Denies pleurisy, Denies respiratory infections, Denies sleep apnea, Denies snoring, Denies wheezing Gastrointestinal: Reports as per HPI, Denies abdominal pain, Denies belching, Denies bloating, Denies BRBPR, Denies change in bowel habits, Denies coffee ground emesis, Denies constipation, Denies diarrhea, Denies dyspepsia, Denies early satiety, Denies excessive gas, Denies heartburn, Denies hematemesis, Denies hematochezia, Denies indigestion, Denies jaundice, Denies lactose intolerance, Denies loss of appetite, Denies melena, Denies nausea, Denies vomiting Genitourinary: Reports as per HPI, Denies decreased libido, Denies dysuria, Denies flank pain, Denies hematuria, Denies hot flashes, Denies incomplete emp tying, Denies mixed incontinence, Denies nocturia, Denies pelvic pain, Denies post void dribbling, Denies prolapse symptoms, Denies stress incontinence, Denies urge incontinence, Denies urgency, Denies urinary frequency, Denies vaginal dryness, Denies vaginal odor Menstruation: Reports as per HPI, Reports postmenopausal Musculoskeletal: Reports as per HPI, Reports gait dysfunction, Reports limitation of motion, Reports muscle weakness Integumentary: Reports as per HPI, Reports lesions, Reports sores, Denies acne, Denies boils, Denies brittle nails, Denies change in hair/nails, Denies color changes, Denies darkening of skin, Denies depigmentation, Denies dryness, Denies foot/leg ulcers, Denies growths, Denies hirsutism, Denies onychomycosis, Denies pruritus, Denies rash, Denies striae, Denies unusual bruising, Denies wounds Neurological: Reports as per HPI, Denies aphasia, Denies ataxia, Denies balance difficulties, Denies burning pain, Denies change in mentation, Denies change in smell/taste, Denies change in speech, Denies confusion, Denies convulsions, Denies double vision, Denies gait dysfunction, Denies head injury, Denies headaches, Denies hearing difficulties, Denies lack of coordination, Denies loss of vision, Denies memory loss, Denies migraines, Denies motor disturbance, Denies numbness, Denies paralysis, Denies paresthesias, Denies seizures, Denies sensory deficit, Denies spasticity, Denies syncope, Denies tic, Denies tingling, Denies transient paralysis, Denies tremors, Denies vertigo, Denies weakness, Denies visual changes Psychiatric: Reports as per HPI, Reports sleep disturbances Endocrine: Reports as per HPI Past Medical History Past Medical History: Memory Impairment, Mitral Valve Prolapse (MVP), Skin Disorder Additional Past Medical History / Comment(s): recent scabies History of Any Multi-Drug Resistant Organisms: Unobtainable Past Surgical History: Unable to Obtain Past Anesthesia/Blood Transfusion Reactions: No Reported Reaction Past Psychological History: Unable to Obtain Smoking Status: Former smoker Past Alcohol Use History: Unable to Obtain Past Drug Use History: Unable to Obtain - Past Family History Father Family Medical History: Memory Impairment Mother Family Medical History: Unable to Obtain Medications and Allergies Home Medications Medication Instructions Recorded Confirmed Type ALPRAZolam [Xanax] 0.5 mg PO HS 12/13/18 12/13/18 History Aspirin EC [Ecotrin Low Dose] 81 mg PO DAILY 12/13/18 12/13/18 History Atenolol [Tenormin] 25 mg PO BID 12/13/18 12/13/18 History Donepezil [Aricept] 2.5 mg PO HS 12/13/18 12/13/18 History Lisinopril [Zestril] 10 mg PO DAILY 12/13/18 12/13/18 History Memantine [Namenda] 10 mg PO BID 12/13/18 12/13/18 History Sulfamethox-Tmp 800-160Mg [Bactrim 1 tab PO Q12HR 12/13/18 12/13/18 History DS 800-160 mg] Vitamin B Complex 1 cap PO DAILY 12/13/18 12/13/18 History Allergies Allergy/AdvReac Type Severity Reaction Status Date / Time No Known Allergies Allergy Verified 12/13/18 13:56 Physical Exam Vitals: Vital Signs Temp Pulse Pulse Resp BP BP BP 12/14/18 12:00 97.0 F L 57 L 18 12/14/18 10:56 12/14/18 08:00 97.3 F L 67 18 12/14/18 04:00 70 18 133/81 12/14/18 00:00 99.8 F H 66 18 143/86 12/13/18 23:58 18 12/13/18 21:00 16 12/13/18 20:00 78 18 178/77 12/13/18 19:50 97.9 F 82 16 149/82 12/13/18 19:15 98.2 F 75 20 140/89 12/13/18 18:57 97.9 F 82 16 183/104 12/13/18 17:07 72 16 174/104 12/13/18 16:00 68 20 156/89 12/13/18 15:10 58 L 20 158/101 12/13/18 14:53 98.1 F 59 L 16 119/77 12/13/18 14:00 59 L 18 151/98 BP Pulse Ox 12/14/18 12:00 142/70 98 12/14/18 10:56 92 L 12/14/18 08:00 104/69 93 L 12/14/18 04:00 94 L 12/14/18 00:00 194/79 98 12/13/18 23:58 12/13/18 21:00 12/13/18 20:00 12/13/18 19:50 97 12/13/18 19:15 99 12/13/18 18:57 95 12/13/18 17:07 94 L 12/13/18 16:00 99 12/13/18 15:10 99 12/13/18 14:53 95 12/13/18 14:00 96 Intake and Output 12/13/18 12/14/18 12/14/18 22:59 06:59 14:59 Intake Total 240 Balance 240 Intake: Oral 240 Other: Voiding Method Incontinent Incontinent Incontinent # Voids 1 1 1 # Bowel Movements 1 2 0 Weight 51.9 kg - Constitutional General appearance: average body habitus, cooperative, no acute distress - EENT Eyes: anicteric sclerae, EOMI, normal appearance ENT: hearing grossly normal, normal oropharynx - Neck Neck: normal ROM - Respiratory Respiratory: bilateral: CTA, negative: diminished, dullness, rales, rhonchi - Cardiovascular Rhythm: regular Heart sounds: normal: S1, S2 Abnormal Heart Sounds: no systolic murmur, no diastolic murmur, no rub, no S3 Gallop, no S4 Gallop, no click, no other - Gastrointestinal General gastrointestinal: normal bowel sounds, soft - Integumentary Integumentary: rash (Follicular further options, abdomen and groin and lower extremities, with black dots, no ulcers, and no cellulitis, scabies is in the differential based on this rash) - Neurologic Neurologic: CNII-XII intact - Musculoskeletal Musculoskeletal: gait normal, strength equal bilaterally - Psychiatric Psychiatric: appropriate affect Results CBC & Chem 7: 12/14/18 04:55 12/14/18 05:08 Labs: Abnormal Lab Results - Last 24 Hours (Table) 12/13/18 12/13/18 12/13/18 Range/Units 13:05 13:05 13:05 WBC (3.8-10.6) k/uL Plt Count (150-450) k/uL Neutrophils # (1.3-7.7) k/uL Lymphocytes # (1.0-4.8) k/uL APTT 20.7 L (22.0-30.0) sec Carbon Dioxide (22-30) mmol/L Glucose (74-99) mg/dL Phosphorus 4.8 H (2.5-4.5) mg/dL Troponin I (0.000-0.034) ng/mL Cholesterol 225 H (<200) mg/dL LDL Cholesterol, Calc 161 H (0-99) mg/dL HDL Cholesterol 39 L (40-60) mg/dL 12/13/18 12/14/18 12/14/18 Range/Units 19:21 01:32 04:55 WBC 10.8 H (3.8-10.6) k/uL Plt Count 86 L (150-450) k/uL Neutrophils # 9.4 H (1.3-7.7) k/uL Lymphocytes # 0.7 L (1.0-4.8) k/uL APTT (22.0-30.0) sec Carbon Dioxide (22-30) mmol/L Glucose (74-99) mg/dL Phosphorus (2.5-4.5) mg/dL Troponin I 0.049 H* 0.071 H* (0.000-0.034) ng/mL Cholesterol (<200) mg/dL LDL Cholesterol, Calc (0-99) mg/dL HDL Cholesterol (40-60) mg/dL 12/14/18 Range/Units 05:08 WBC (3.8-10.6) k/uL Plt Count (150-450) k/uL Neutrophils # (1.3-7.7) k/uL Lymphocytes # (1.0-4.8) k/uL APTT (22.0-30.0) sec Carbon Dioxide 21 L (22-30) mmol/L Glucose 103 H (74-99) mg/dL Phosphorus (2.5-4.5) mg/dL Troponin I (0.000-0.034) ng/mL Cholesterol (<200) mg/dL LDL Cholesterol, Calc (0-99) mg/dL HDL Cholesterol (40-60) mg/dL Microbiology - Last 24 Hours (Table) 12/13/18 15:25 Urine Culture - Preliminary Urine,Catheterized Laboratory Results WBC 10.8 k/uL (3.8-10.6) H 12/14/18 04:55 RBC 5.03 m/uL (3.80-5.40) 12/14/18 04:55 Hgb 14.9 gm/dL (11.4-16.0) 12/14/18 04:55 Hct 46.0 % (34.0-46.0) 12/14/18 04:55 MCV 91.4 fL (80.0-100.0) 12/14/18 04:55 MCH 29.6 pg (25.0-35.0) 12/14/18 04:55 MCHC 32.4 g/dL (31.0-37.0) 12/14/18 04:55 RDW 13.7 % (11.5-15.5) 12/14/18 04:55 Plt Count 86 k/uL (150-450) L 12/14/18 04:55 Neutrophils % 87 % 12/14/18 04:55 Lymphocytes % 7 % 12/14/18 04:55 Monocytes % 5 % 12/14/18 04:55 Eosinophils % 0 % 12/14/18 04:55 Basophils % 0 % 12/14/18 04:55 Neutrophils # 9.4 k/uL (1.3-7.7) H 12/14/18 04:55 Lymphocytes # 0.7 k/uL (1.0-4.8) L 12/14/18 04:55 Monocytes # 0.5 k/uL (0-1.0) 12/14/18 04:55 Eosinophils # 0.1 k/uL (0-0.7) 12/14/18 04:55 Basophils # 0.0 k/uL (0-0.2) 12/14/18 04:55 PT 11.6 sec (9.0-12.0) 12/13/18 13:05 INR 1.1 (<1.2) 12/13/18 13:05 APTT 20.7 sec (22.0-30.0) L 12/13/18 13:05 Sodium 137 mmol/L (137-145) 12/14/18 05:08 Potassium 4.8 mmol/L (3.5-5.1) 12/14/18 05:08 Chloride 104 mmol/L (98-107) 12/14/18 05:08 Carbon Dioxide 21 mmol/L (22-30) L 12/14/18 05:08 Anion Gap 12 mmol/L 12/14/18 05:08 BUN 17 mg/dL (7-17) 12/14/18 05:08 Creatinine 1.02 mg/dL (0.52-1.04) 12/14/18 05:08 Est GFR (CKD-EPI)AfAm 60 (>60 ml/min/1.73 sqM) 12/14/18 05:08 Est GFR (CKD-EPI)NonAf 52 (>60 ml/min/1.73 sqM) 12/14/18 05:08 Glucose 103 mg/dL (74-99) H 12/14/18 05:08 POC Glucose (mg/dL) 82 mg/dL (75-99) 12/13/18 13:05 POC Glu C[employer] Making Machine [employer]cher ID Allyssa Whitaker 12/13/18 13:05 Calcium 8.6 mg/dL (8.4-10.2) 12/14/18 05:08 Phosphorus 4.8 mg/dL (2.5-4.5) H 12/13/18 13:05 Magnesium 2.0 mg/dL (1.6-2.3) 12/13/18 13:05 Total Bilirubin 0.7 mg/dL (0.2-1.3) 12/13/18 13:05 AST 31 U/L (14-36) 12/13/18 13:05 ALT 22 U/L (9-52) 12/13/18 13:05 Alkaline Phosphatase 141 U/L (38-126) H 12/13/18 13:05 Total Creatine Kinase 106 U/L (30-135) 12/13/18 13:05 CK-MB (CK-2) 1.1 ng/mL (0.0-2.4) 12/13/18 13:05 CK-MB (CK-2) Rel Index 1.0 12/13/18 13:05 Troponin I 0.071 ng/mL (0.000-0.034) H* 12/14/18 01:32 Total Protein 6.7 g/dL (6.3-8.2) 12/13/18 13:05 Albumin 4.0 g/dL (3.5-5.0) 12/13/18 13:05 Triglycerides 124 mg/dL (<150) 12/13/18 13:05 Cholesterol 225 mg/dL (<200) H 12/13/18 13:05 LDL Cholesterol, Calc 161 mg/dL (0-99) H 12/13/18 13:05 HDL Cholesterol 39 mg/dL (40-60) L 12/13/18 13:05 TSH 0.628 mIU/L (0.465-4.680) 12/14/18 05:08 Urine Color Yellow 12/13/18 15:25 Urine Appearance Clear (Clear) 12/13/18 15:25 Urine pH 6.0 (5.0-8.0) 12/13/18 15:25 Ur Specific [place] 1.035 (1.001-1.035) 12/13/18 15:25 Urine Protein Negative (Negative) 12/13/18 15:25 Urine Glucose (UA) Negative (Negative) 12/13/18 15:25 Urine Ketones Negative (Negative) 12/13/18 15:25 Urine Blood Negative (Negative) 12/13/18 15:25 Urine Nitrite Negative (Negative) 12/13/18 15:25 Urine Bilirubin Negative (Negative) 12/13/18 15:25 Urine Urobilinogen <2.0 mg/dL (<2.0) 12/13/18 15:25 Ur Leukocyte Esterase Negative (Negative) 12/13/18 15:25 Thrombosis Risk Factor Assmnt - DVT/VTE Prophylaxis DVT/VTE Prophylaxis: Pharmacologic Prophylaxis ordered - Choose All That Apply Each Risk Factor Represents 3 Points: Age 75 years or older Thrombosis Risk Factor Assessment Total Risk Factor Score: 3 Thrombosis Risk Factor Assessment Level: Moderate Risk Assessment and Plan Plan: 1. Unresponsiveness, etiology is unknown, no prior history of seizures, patient will be seen consultation by cardiology secondary to elevated troponin, cardiac arrhythmias is in the differential as the patient is on other cholinesterase inhibition's for dementia, patient was seen in consultation with cardiology, troponin will be closely monitored as it is elevated, echocardiogram to be done, if the patient has sustained bradycardia, the Aricept needs to be discontinued,, EEG of the brain to be done, telemetry monitoring to evaluate for bradyarrhythmias and tachyarrhythmias 2. Advanced dementia, on both Aricept and Namenda, followed closely by Dr. Martinez 3. Elevated troponin, possibly related to prolonged unresponsiveness with demand ischemia, suspect an STEMI with a slightly upward trend, patient is on aspirin, Tenormin, 4. Acute kidney failure secondary to dehydration, IV perfusion with fluids, creatinine is on a downward trend, avoid nephrotoxins and hypotension, and NSAIDs 5. With behaviors, patient currently is culturing initial hospital stay, he and is on Xanax at bedtime scheduled 6. Hypertension on Zestril 10 mg daily Tenormin 25 mg twice a day 7. GI prophylaxis 8. DVT prophylaxis 9. New onset fever at the hospital, aspirative events is considered vent, urinalysis again is obtained, influenza test, chest x-ray,, IV Zosyn 10. Recent completion of Bactrim for a nitrite infection, resolved 11. Recurrent diarrhea, off and on related to Namenda titration, patient did well with 5 mg twice a day, dose adjustment to decrease the dose, monitor for diarrhea further adjustments Prognosis currently guarded
[2018-12-14] MEDS: PIPERACILLIN-TAZOBACTAM 3.375 GM in SODIUM CHLORIDE 0.9% 100 ML IVPB SCH (15:42)
[2018-12-14] MEDS: MEMANTINE 5 MG TAB PO SCH (19:54)
[2018-12-14] MEDS: ALPRAZolam 0.5 MG TAB PO SCH (19:54)
[2018-12-14] MEDS ORDERED: DONEPEZIL 5 MG TAB PO SCH (21:00)
[2018-12-15] MEDS: PIPERACILLIN-TAZOBACTAM 3.375 GM in SODIUM CHLORIDE 0.9% 100 ML IVPB SCH ×3 (00:38→16:30)
[2018-12-15 07:06] LABS: HCT 39.5 % (34.0-46.0); HGB 13.2 gm/dL (11.4-16.0); MCH 30.6 pg (25.0-35.0); MCHC 33.3 g/dL (31.0-37.0); MCV 91.9 fL (80.0-100.0); Mean Platelet Volume 8.6; RDW 14.2 % (11.5-15.5); WBC 11.1 k/uL (3.8-10.6)
[2018-12-15 07:10] LABS: Albumin 3.1 g/dL (3.5-5.0); Calcium 8.3 mg/dL (8.4-10.2); Platelet Count 96 k/uL (150-450); Potassium 3.9 mmol/L (3.5-5.1); Total Protein 5.6 g/dL (6.3-8.2)
[2018-12-15] MEDS: LISINOPRIL 10 MG TAB PO SCH (08:55)
[2018-12-15] MEDS: ATENOLOL 25 MG TAB PO SCH ×2 (08:55→20:53)
[2018-12-15] MEDS: ASPIRIN 81 MG PO SCH (08:55)
[2018-12-15] MEDS: MEMANTINE 5 MG TAB PO SCH ×2 (08:55→20:54)
--- NOTE | 2018-12-15 15:13 | P.PN ---
Subjective Progress Note Date: 12/15/18 This is an 83-year-old patient patient off Dr. Ryan and Dr. Martinez, seen in the emergency room secondary to unresponsiveness. She she has underlying history of advanced Alzheimer's dementia, followed closely by Dr. Martinez he is seeing both benazepril and Namenda, was at home with family members when she was observed to have complete loss of consciousness, accompanied by extensors stiffness, lasting for approximately 8 minutes, the daughter who was there was worried that she has shallow breathing, and she stopped breathing for a while, and thereafter has spontaneous breathing without any intervention. She is unresponsive to painful stimuli, the EMS was brought in, again the patient was unresponsive, no new medications were started initially prior to admission, there is no diarrhea or vomiting no fever no chills, no history of seizures in the past, no history of strokes in the past. No information can be gathered from the patient as she has lack of verbal verbal and claudication skills. She can answer to simple questions with yes or no, when it comes pain otherwise. There is no edema, no anorexia, no respiratory events, patient does not have any dysphagia. Emergency room she was observed for telemetry monitoring, no evidence of bradycardia., Blood pressure was 194/179 on and 3, oxygen was 93% on room air, EKG shows normal sinus rhythm with age undetermined anterior infarct with Q waves, V2 V3, no QT prolongation chest x-ray shows no acute disease, CAT scan of the brain shows age-related atrophic and chronic small vessel ischemic change without any acute intracranial process CTA of the neck shows no significant diameter reduction on both carotid system, mild plaques noted CTA [place] shows vertebral basilar system is patent no sizable aneurysms or vascular malformation noted. Nursing staff is concerned while in the hospital that she has a rash, in the a bdomen and lower extremities, with scabies exposure, they have utilize one treatment of scabies treatment, patient currently is on contact precautions, cardiology to see the patient regarding the arrhythmias, and syncope, family is aware that there is no neurology on staff in this hospital, however she was last seen by Dr. Martinez for titration of her memory medication approximately 3 weeks ago no history of seizures in the past. She is currently afebrile, need to rule out any aspirin or events, entry troponin the ER was 0.0 49 and 0.071, 12/15: Patient has been seen by cardiology for abnormal troponins. Plan to continue beta blockers and monitor for bradycardia. Chest x-ray reveals chronic changes without evidence of acute pulmonary disease. Patient has been afebrile, heart rate between 55 and 114, blood pressure 122/59, pulse ox 90% on room air. The patient's rash is better from yesterday after treatment. Aricept will be discontinued. Patient does have a sitter at the bedside secondary to her underlying dementia. Review of Systems unable to obtain due to patient's mental status. Patient is pleasantly confused. Objective - Vital Signs Vital signs: Vital Signs Temp 97.8 F 12/15/18 07:55 Pulse 55 L 12/15/18 07:55 Resp 18 12/15/18 07:55 BP 149/72 12/15/18 07:55 Pulse Ox 98 12/15/18 08:27 Intake & Output 12/14/18 12/15/18 12/15/18 18:59 06:59 18:59 Intake Total 240 850 Balance 240 850 Weight 53 kg Intake: Intake, IV Titration 100 Amount Piperacillin-Tazobactam 3 100 .375 gm In Sodium Chloride 0.9% 100 ml @ 25 mls/hr IVPB Q8HR ON LICENSE OF [facility] Rx# :[id number] Oral 240 750 Other: Voiding Method Incontinent Incontinent Incontinent # Voids 2 1 # Bowel Movements 0 1 - Exam General appearance: average body habitus, cooperative, no acute distress patient resting comfortably in bed. - EENT Eyes: anicteric sclerae, EOMI, normal appearance ENT: hearing grossly normal, normal oropharynx - Neck Neck: normal ROM - Respiratory Respiratory: bilateral: CTA, negative: diminished, dullness, rales, rhonchi - Cardiovascular Rhythm: regular Heart sounds: normal: S1, S2 Abnormal Heart Sounds: no systolic murmur, no diastolic murmur, no rub, no S3 Gallop, no S4 Gallop, no click, no other - Gastrointestinal General gastrointestinal: normal bowel sounds, soft - Integumentary Integumentary: rash (Follicular further options, abdomen and groin and lower extremities, with black dots, no ulcers, and no cellulitis, scabies is in the differential based on this rash) - Neurologic Neurologic: CNII-XII intact - Musculoskeletal Musculoskeletal: gait normal, strength equal bilaterally - Psychiatric Psychiatric: appropriate affect - Labs CBC & Chem 7: 12/15/18 06:38 12/15/18 06:38 Labs: Abnormal Lab Results - Last 24 Hours (Table) 12/15/18 12/15/18 Range/Units 06:38 06:38 WBC 11.1 H (3.8-10.6) k/uL Plt Count 96 L (150-450) k/uL BUN 18 H (7-17) mg/dL Calcium 8.3 L (8.4-10.2) mg/dL AST 58 H (14-36) U/L Total Protein 5.6 L (6.3-8.2) g/dL Albumin 3.1 L (3.5-5.0) g/dL Microbiology - Last 24 Hours (Table) 12/13/18 15:25 Urine Culture - Final Urine,Catheterized Assessment and Plan Plan: 1. Unresponsiveness, etiology is unknown, no prior history of seizures, cardiology consult appreciated. Monitor for arrhythmias. Aricept discontinued. EEG pending 2. Advanced dementia, on both Aricept and Namenda, followed closely by Dr. Martinez 3. Elevated troponin, acute coronary syndrome ruled out. Consult cardiology appreciated. 4. Acute kidney failure secondary to dehydration, resolved, avoid nephrotoxins and hypotension, and NSAIDs 5. With behaviors, patient currently is culturing initial hospital stay, he and is on Xanax at bedtime scheduled 6. Hypertension on Zestril 10 mg daily Tenormin 25 mg twice a day 7. GI prophylaxis. Pepcid 8. DVT prophylaxis. Heparin subcu 9. New onset fever at the hospital, aspirative events is considered vent, urinalysis again is obtained, influenza test, chest x-ray,, IV Zosyn. Possible aspiration pneumonitis. No infiltrate on chest x-ray. 10. Recent completion of Bactrim for a urinary tract infection, resolved 11. Recurrent diarrhea, off and on related to Namenda titration, patient did well with 5 mg twice a day, dose adjustment to decrease the dose, monitor for diarrhea further adjustments Prognosis currently guarded Discharge plan: To be determined Impression and plan of care have been directed as dictated by the signing physician. Lamar Jean Baptiste nurse practitioner acting as scribe for signing physician.
[2018-12-15] MEDS: ALPRAZolam 0.5 MG TAB PO SCH (20:53)
[2018-12-15] MEDS: HALOPERIDOL ORAL SOLN 10 MG/5 ML CUP PO PRN (20:53)
[2018-12-15] MEDS: HEPARIN SODIUM,PORCINE 5,000 UNIT/ML 1 ML VIAL SQ SCH (20:53)
[2018-12-16] MEDS: PIPERACILLIN-TAZOBACTAM 3.375 GM in SODIUM CHLORIDE 0.9% 100 ML IVPB SCH ×2 (01:44→10:05)
[2018-12-16 07:37] LABS: Basophils % (A) 0 %; Eosinophils # (A) 0.1 k/uL (0-0.7); Eosinophils % (A) 2 %; HCT 41.9 % (34.0-46.0); Lymphocytes # (A) 0.9 k/uL (1.0-4.8); Lymphocytes % (A) 12 %; MCH 29.6 pg (25.0-35.0); MCHC 30.9 g/dL (31.0-37.0); MCV 95.6 fL (80.0-100.0); Monocytes # (A) 0.2 k/uL (0-1.0); Monocytes % (A) 3 %; Neutrophils # (A) 6.2 k/uL (1.3-7.7); Neutrophils % (A) 82 %; Platelet Count 105 k/uL (150-450); RBC 4.38 m/uL (3.80-5.40); RDW 13.8 % (11.5-15.5); WBC 7.6 k/uL (3.8-10.6)
[2018-12-16 07:58] LABS: Calcium 8.5 mg/dL (8.4-10.2); Potassium 3.4 mmol/L (3.5-5.1)
[2018-12-16] MEDS: ATENOLOL 25 MG TAB PO SCH (09:58)
[2018-12-16] MEDS: FAMOTIDINE 20 MG TAB PO SCH (10:06)
[2018-12-16] MEDS: HEPARIN SODIUM,PORCINE 5,000 UNIT/ML 1 ML VIAL SQ SCH ×2 (10:06→20:24)
[2018-12-16] MEDS: ASPIRIN 81 MG PO SCH (10:06)
[2018-12-16] MEDS: LISINOPRIL 10 MG TAB PO SCH (10:06)
[2018-12-16] MEDS: MEMANTINE 5 MG TAB PO SCH ×2 (10:06→20:26)
--- NOTE | 2018-12-16 15:03 | P.PN ---
Subjective Progress Note Date: 12/16/18 This is an 83-year-old patient patient off Dr. Ryan and Dr. Martinez, seen in the emergency room secondary to unresponsiveness. She she has underlying history of advanced Alzheimer's dementia, followed closely by Dr. Martinez he is seeing both benazepril and Namenda, was at home with family members when she was observed to have complete loss of consciousness, accompanied by extensors stiffness, lasting for approximately 8 minutes, the daughter who was there was worried that she has shallow breathing, and she stopped breathing for a while, and thereafter has spontaneous breathing without any intervention. She is unresponsive to painful stimuli, the EMS was brought in, again the patient was unresponsive, no new medications were started initially prior to admission, there is no diarrhea or vomiting no fever no chills, no history of seizures in the past, no history of strokes in the past. No information can be gathered from the patient as she has lack of verbal verbal and claudication skills. She can answer to simple questions with yes or no, when it comes pain otherwise. There is no edema, no anorexia, no respiratory events, patient does not have any dysphagia. Emergency room she was observed for telemetry monitoring, no evidence of bradycardia., Blood pressure was 194/179 on and 3, oxygen was 93% on room air, EKG shows normal sinus rhythm with age undetermined anterior infarct with Q waves, V2 V3, no QT prolongation chest x-ray shows no acute disease, CAT scan of the brain shows age-related atrophic and chronic small vessel ischemic change without any acute intracranial process CTA of the neck shows no significant diameter reduction on both carotid system, mild plaques noted CTA [place] shows vertebral basilar system is patent no sizable aneurysms or vascular malformation noted. Nursing staff is concerned while in the hospital that she has a rash, in the a bdomen and lower extremities, with scabies exposure, they have utilize one treatment of scabies treatment, patient currently is on contact precautions, cardiology to see the patient regarding the arrhythmias, and syncope, family is aware that there is no neurology on staff in this hospital, however she was last seen by Dr. Martinez for titration of her memory medication approximately 3 weeks ago no history of seizures in the past. She is currently afebrile, need to rule out any aspirin or events, entry troponin the ER was 0.0 49 and 0.071, 12/15: Patient has been seen by cardiology for abnormal troponins. Plan to continue beta blockers and monitor for bradycardia. Chest x-ray reveals chronic changes without evidence of acute pulmonary disease. Patient has been afebrile, heart rate between 55 and 114, blood pressure 122/59, pulse ox 90% on room air. The patient's rash is better from yesterday after treatment. Aricept will be discontinued. Patient does have a sitter at the bedside secondary to her underlying dementia. 12/16: Patient had a drop in her heart rate into the 30s while sleeping. Dr. Álvarez has discontinued atenolol and place her on Coreg 3.125 mg twice daily. Her rash is improved. Potassium is 3.4 will be replaced, creatinine 0.77, platelet count 105. Patient has been afebrile, heart rate during the day in the 60s, pulse ox 96% on room air, blood pressure 142/71. We'll plan to monitor patient overnight and possible discharge tomorrow. Review of Systems unable to obtain due to patient's mental status. Patient is pleasantly confused. Objective - Vital Signs Vital signs: Vital Signs Temp 98.2 F 12/16/18 08:00 Pulse 60 12/16/18 08:00 Resp 18 12/16/18 08:00 BP 189/89 12/16/18 08:00 Pulse Ox 96 12/16/18 08:00 Intake & Output 12/15/18 12/16/18 12/16/18 18:59 06:59 18:59 Intake Total 1818 220 10 Balance 1818 220 10 Weight 51 kg Intake: IV 10 Invasive Line 3 10 Intake, IV Titration 200 100 Amount Piperacillin-Tazobactam 3 200 100 .375 gm In Sodium Chloride 0.9% 100 ml @ 25 mls/hr IVPB Q8HR [facility] Rx# :[id number] Oral 1618 120 Other: Voiding Method Incontinent Incontinent Incontinent # Voids 3 - Exam General appearance: average body habitus, cooperative, no acute distress, is at bedside - EENT Eyes: anicteric sclerae, EOMI, normal appearance ENT: hearing grossly normal, normal oropharynx - Neck Neck: normal ROM - Respiratory Respiratory: bilateral: CTA, negative: diminished, dullness, rales, rhonchi - Cardiovascular Rhythm: regular Heart sounds: normal: S1, S2 Abnormal Heart Sounds: no systolic murmur, no diastolic murmur, no rub, no S3 Gallop, no S4 Gallop, no click, no other - Gastrointestinal General gastrointestinal: normal bowel sounds, soft - Integumentary Integumentary: rash (Follicular further options, abdomen and groin and lower extremities, with black dots, no ulcers, and no cellulitis, scabies is in the differential based on this rash) - Neurologic Neurologic: CNII-XII intact - Musculoskeletal Musculoskeletal: gait normal, strength equal bilaterally - Psychiatric Psychiatric: appropriate affect - Labs CBC & Chem 7: 12/16/18 06:58 12/16/18 06:58 Labs: Abnormal Lab Results - Last 24 Hours (Table) 12/16/18 12/16/18 Range/Units 06:58 06:58 MCHC 30.9 L (31.0-37.0) g/dL Plt Count 105 L (150-450) k/uL Lymphocytes # 0.9 L (1.0-4.8) k/uL Potassium 3.4 L (3.5-5.1) mmol/L Chloride 108 H (98-107) mmol/L Assessment and Plan Plan: 1. Unresponsiveness, etiology is unknown, no prior history of seizures, cardiology consult appreciated. Monitor for arrhythmias. Aricept discontinued. EEG pending 2. Advanced dementia, on both Aricept and Namenda, followed closely by Dr. Martinez 3. Elevated troponin, acute coronary syndrome ruled out. Consult cardiology appreciated. 4. Acute kidney failure secondary to dehydration, resolved, avoid nephrotoxins and hypotension, and NSAIDs 5. With behaviors, patient currently is culturing initial hospital stay, he and is on Xanax at bedtime scheduled 6. Hypertension on Zestril 10 mg daily Tenormin changed to Coreg. 7. GI prophylaxis. Pepcid 8. DVT prophylaxis. Heparin subcu 9. New onset fever at the hospital, aspirative events is considered vent, urinalysis again is obtained, influenza test, chest x-ray,, IV Zosyn. Possible aspiration pneumonitis. No infiltrate on chest x-ray. 10. Recent completion of Bactrim for a urinary tract infection, resolved 11. Recurrent diarrhea, off and on related to Namenda titration, patient did well with 5 mg twice a day, dose adjustment to decrease the dose, monitor for diarrhea further adjustments 12. Bradycardia most likely secondary to obstructive sleep apnea. Dr. Álvarez has changed atenolol to Coreg. Prognosis currently guarded Discharge plan: Return home with homecare tomorrow Impression and plan of care have been directed as dictated by the signing physician. Lamra Jean Baptiste nurse practitioner acting as scribe for signing physician.
[2018-12-16] MEDS: CARVEDILOL 3.125 MG TAB PO SCH (18:11)
[2018-12-16] MEDS: HALOPERIDOL ORAL SOLN 10 MG/5 ML CUP PO PRN (18:12)
[2018-12-16] MEDS: AMOXIC-POT CLAV 875-125MG 1 EACH TAB PO SCH (20:25)
[2018-12-16] MEDS: ALPRAZolam 0.5 MG TAB PO SCH (20:25)
[2018-12-16] MEDS ORDERED: amLODIPine 5 MG TAB PO STA (21:19)
[2018-12-16] MEDS ORDERED: hydrALAZINE HCL 20 MG/ML 1 ML VIAL IVP PRN (22:55)
[2018-12-17] MEDS: HALOPERIDOL ORAL SOLN 10 MG/5 ML CUP PO PRN (03:09)
[2018-12-17 06:28] LABS: Basophils % (A) 0 %; Eosinophils # (A) 0.1 k/uL (0-0.7); Eosinophils % (A) 1 %; HCT 37.9 % (34.0-46.0); HGB 12.6 gm/dL (11.4-16.0); Lymphocytes # (A) 1.1 k/uL (1.0-4.8); Lymphocytes % (A) 16 %; MCH 30.4 pg (25.0-35.0); MCHC 33.3 g/dL (31.0-37.0); MCV 91.3 fL (80.0-100.0); Mean Platelet Volume 8.4; Monocytes # (A) 0.3 k/uL (0-1.0); Monocytes % (A) 5 %; Neutrophils # (A) 5.1 k/uL (1.3-7.7); Neutrophils % (A) 75 %; Platelet Count 139 k/uL (150-450); RBC 4.15 m/uL (3.80-5.40); RDW 14.1 % (11.5-15.5); WBC 6.8 k/uL (3.8-10.6)
[2018-12-17 06:33] LABS: Anion Gap 6 mmol/L; Blood Urea Nitrogen 12 mg/dL (7-17); Calcium 8.6 mg/dL (8.4-10.2); Carbon Dioxide 26 mmol/L (22-30); Chloride 108 mmol/L (98-107); Glucose 105 mg/dL (74-99); Potassium 3.2 mmol/L (3.5-5.1); Sodium 140 mmol/L (137-145)
[2018-12-17] MEDS: HEPARIN SODIUM,PORCINE 5,000 UNIT/ML 1 ML VIAL SQ SCH (10:20)
[2018-12-17] MEDS: MEMANTINE 5 MG TAB PO SCH (10:20)
[2018-12-17] MEDS: AMOXIC-POT CLAV 875-125MG 1 EACH TAB PO SCH (10:20)
[2018-12-17] MEDS: ASPIRIN 81 MG PO SCH (10:20)
[2018-12-17] MEDS: LISINOPRIL 10 MG TAB PO SCH (10:20)
[2018-12-17] MEDS: FAMOTIDINE 20 MG TAB PO SCH (10:20)
[2018-12-17] MEDS: CARVEDILOL 3.125 MG TAB PO SCH (10:20)
[2018-12-17 10:31] VITALS: RESP 16
[2018-12-17] MEDS: POTASSIUM CHLORIDE ER 20 MEQ TAB.ER PO SCH ×2 (12:24→14:19)
[2018-12-17 12:32] VITALS: BP 127/73; PULSE 70; TEMP 98.2
--- NOTE | 2018-12-17 14:33 | P.DS ---
Providers Date of admission: 12/16/18 07:17 Expected date of discharge: 12/17/18 Attending physician: Ivelisse Albarado Consults: 12/13/18 17:46 Consult Physician Urgent Consulting Provider: Edd Elias Consult Reason/Comments: syncopoe Do you want consulting provider notified?: Yes 12/16/18 11:09 Consult Physician Routine Consulting Provider: Faustino Álvarez Consult Reason/Comments: bradycardia Do you want consulting provider notified?: Yes Primary care physician: Rodolfo Ryan [place] [facility] Course: This is an 83-year-old patient patient off Dr. Ryan and Dr. Martinez, seen in the emergency room secondary to unresponsiveness. She she has underlying history of advanced Alzheimer's dementia, followed closely by Dr. Martinez he is seeing both benazepril and Namenda, was at home with family members when she was observed to have complete loss of consciousness, accompanied by extensors stiffness, lasting for approximately 8 minutes, the daughter who was there was worried that she has shallow breathing, and she stopped breathing for a while, and thereafter has spontaneous breathing without any intervention. She is unresponsive to painful stimuli, the EMS was brought in, again the patient was unresponsive, no new medications were started initially prior to admission, there is no diarrhea or vomiting no fever no chills, no history of seizures in the past, no history of strokes in the past. No information can be gathered from the patient as she has lack of verbal verbal and claudication skills. She can answer to simple questions with yes or no, when it comes pain otherwise. There is no edema, no anorexia, no respiratory events, patient does not have any dysphagia. Emergency room she was observed for telemetry monitoring, no evidence of bradycardia., Blood pressure was 194/179 on and 3, oxygen was 93% on room air, EKG shows normal sinus rhythm with age undetermined anterior infarct with Q waves, V2 V3, no QT prolongation chest x-ray shows no acute disease, CAT scan of the brain shows age-related atrophic and chronic small vessel ischemic change without any acute intracranial process CTA of the neck shows no significant diameter reduction on both carotid system, mild plaques noted CTA [place] shows vertebral basilar system is patent no sizable aneurysms or vascular malformation noted. Nursing staff is concerned while in the hospital that she has a rash, in the abdomen and lower extremities, with scabies exposure, they have utilize one treatment of scabies treatment, patient currently is on contact precautions, cardiology to see the patient regarding the arrhythmias, and syncope, family is aware that there is no neurology on staff in this hospital, however she was last seen by Dr. Martinez for titration of her memory medication approximately 3 weeks ago no history of seizures in the past. She is currently afebrile, need to rule out any aspirin or events, entry troponin the ER was 0.0 49 and 0.071, 12/15: Patient has been seen by cardiology for abnormal troponins. Plan to continue beta blockers and monitor for bradycardia. Chest x-ray reveals chronic changes without evidence of acute pulmonary disease. Patient has been afebrile, heart rate between 55 and 114, blood pressure 122/59, pulse ox 90% on room air. The patient's rash is better from yesterday after treatment. Aricept will be discontinued. Patient does have a sitter at the bedside secondary to her underlying dementia. 12/16: Patient had a drop in her heart rate into the 30s while sleeping. Dr. Álvarez has discontinued atenolol and place her on Coreg 3.125 mg twice daily. Her rash is improved. Potassium is 3.4 will be replaced, creatinine 0.77, platelet count 105. Patient has been afebrile, heart rate during the day in the 60s, pulse ox 96% on room air, blood pressure 142/71. We'll plan to monitor patient overnight and possible discharge tomorrow. 12/17: Patient remains pleasantly confused. Potassium today is 3.2 and has been replaced. Family requesting hospital bed for her safety. Prescription provided to case management. She has been afebrile, heart rate in the 70s and 80s, blood pressure 127/73, pulse ox 95% on room air. Diureses 6.8, hemoglobin 12.6, platelet count 139. Sodium 140, potassium 3.2, chloride 108, CO2 26, creatinine 0.65. The patient has been cleared for discharge by cardiology. Patient will be discharged home today in stable condition. Discharge diagnoses: 1. Unresponsiveness, etiology is unknown, no seizures, no arrhythmias. 2. Advanced dementia 3. Elevated troponin, acute coronary syndrome ruled out. 4. Acute kidney failure secondary to dehydration, resolved 5. Dementia with behavioral disturbance 6. Hypertension 7. New onset fever at the hospital, aspirative events is considered, possible aspiration pneumonitis. 10. Recent completion of Bactrim for a urinary tract infection, resolved 11. Recurrent diarrhea, off and on related to Namenda 12. Bradycardia most likely secondary to obstructive sleep apnea. Discharge plan: Return home with homecare Impression and plan of care have been directed as dictated by the signing physician. Lamar Jean Baptiste nurse practitioner acting as scribe for signing physician. Patient Condition at Discharge: Good Plan - Discharge Summary New Discharge Prescriptions: New Amoxic-Pot Clav 875-125Mg [Augmentin 875-125] 1 each PO Q12HR #6 tab Carvedilol [Coreg] 3.125 mg PO BID-W/MEALS #60 tab Continue Aspirin EC [Ecotrin Low Dose] 81 mg PO DAILY Lisinopril [Zestril] 10 mg PO DAILY Vitamin B Complex 1 cap PO DAILY ALPRAZolam [Xanax] 0.5 mg PO HS Changed Memantine [Namenda] 5 mg PO BID #0 Discontinued Sulfamethox-Tmp 800-160Mg [Bactrim DS 800-160 mg] 1 tab PO Q12HR Donepezil [Aricept] 2.5 mg PO HS Atenolol [Tenormin] 25 mg PO BID Discharge Medication List ALPRAZolam [Xanax] 0.5 mg PO HS 12/13/18 [History] Aspirin EC [Ecotrin Low Dose] 81 mg PO DAILY 12/13/18 [History] Lisinopril [Zestril] 10 mg PO DAILY 12/13/18 [History] Vitamin B Complex 1 cap PO DAILY 12/13/18 [History] Amoxic-Pot Clav 875-125Mg [Augmentin 875-125] 1 each PO Q12HR #6 tab 12/17/18 [Rx] Carvedilol [Coreg] 3.125 mg PO BID-W/MEALS #60 tab 12/17/18 [Rx] Memantine [Namenda] 5 mg PO BID #0 12/17/18 [Rx] Follow up Appointment(s)/Referral(s): Faustino Álvarez MD [STAFF PHYSICIAN] - 01/14/19 3:15 pm Sarbjit Martinez MD [STAFF PHYSICIAN] - 1 Week [facility], [NON-STAFF] - Rodolfo Ryan DO [Primary Care Provider] - 1 Week
== END 2018-12-17 15:49 | disposition home health service (06) | DRG 178 ==
LOC: EC 12:28 → 3SCARD 17:46 → 2SICU 17:46 → INTOOBSV 17:46 → UNDOADMIN 17:46 → 3SCARD 18:58 → OBSVTOIN 12-16 07:17
PROVIDERS: ADMIT Family Medicine; ATTEND Family Medicine
DX: J69.0 Pneumonitis due to inhalation of food and vomit (principal); N17.9 Acute kidney failure, unspecified; I47.1 Supraventricular tachycardia; F02.81 Dementia in other diseases classified elsewhere, unspecified severity, with behavioral disturbance; E86.0 Dehydration; G30.9 Alzheimer's disease, unspecified; I34.1 Nonrheumatic mitral (valve) prolapse; R00.1 Bradycardia, unspecified; R74.8 Abnormal levels of other serum enzymes; R41.82 Altered mental status, unspecified; I10 Essential (primary) hypertension; B86 Scabies; R32 Unspecified urinary incontinence; R19.7 Diarrhea, unspecified; E87.6 Hypokalemia; G47.33 Obstructive sleep apnea (adult) (pediatric); Z79.899 Other long term (current) drug therapy; Z79.82 Long term (current) use of aspirin; Z87.440 Personal history of urinary (tract) infections; Z87.891 Personal history of nicotine dependence; Z81.8 Family history of other mental and behavioral disorders
CPT/HCPCS: 36415; 70450; 70496; 70498; 71045; 80048; 80053; 80061; 81003; 82550; 82553; 83735; 84100; 84443; 84484; 85025; 85027; 85610; 85730; 87086; 87502; 93005; 94760; 96361; 96374; 96375; 99285

== ENCOUNTER 2018-12-22 17:39 | Observation (INO) | payer MEDICARE ==
[2018-12-22] MEDS ORDERED: ASPIRIN 81 MG PO STA (18:01)
[2018-12-22] MEDS ORDERED: NITROGLYCERIN OINT 1 INCH/GM PACKET TOPICAL STA (18:01)
--- NOTE | 2018-12-22 18:04 | ED ---
General Adult HPI - General Chief complaint: Chest Pain Stated complaint: Chest pain, High BP Time Seen by Provider: 12/22/18 17:40 Source: patient, RN notes reviewed Mode of arrival: ambulatory Limitations: no limitations - History of Present Illness Initial comments: This is an 83-year-old female presents emergency Department complaining of chest pain times a half an hour. According to family she has significant dementia so she is not a very accurate historian. Family states she recently was in the hospital had elevated troponins but they did not do a cardiac catheterization according to family. Patient had told family but half hour ago she was having significant heaviness on her chest as if someone was sitting on her. She did not appear short of breath and a family she denies shortness of breath. There was no episode of diaphoresis or any complaints of nausea. There was no clinical abdominal pain no vomiting or diarrhea recently. Patient has not had any recent fever chills according to family has not recently had a cough. Patient's not any peripheral edema as well. Patient has not had any syncopal episodes. Patient denies any headache. - Related Data Home Medications Medication Instructions Recorded Confirmed ALPRAZolam [Xanax] 0.5 mg PO HS 12/13/18 12/22/18 Aspirin EC [Ecotrin Low Dose] 81 mg PO DAILY 12/13/18 12/22/18 Lisinopril [Zestril] 10 mg PO DAILY 12/13/18 12/22/18 Vitamin B Complex 1 cap PO DAILY 12/13/18 12/22/18 Previous Rx's Medication Instructions Recorded Carvedilol [Coreg] 3.125 mg PO BID-W/MEALS #60 tab 12/17/18 Allergies Allergy/AdvReac Type Severity Reaction Status Date / Time No Known Allergies Allergy Verified 12/22/18 18:41 Review of Systems ROS Statement: Those systems with pertinent positive or pertinent negative responses have been documented in the HPI. ROS Other: All systems not noted in ROS Statement are negative. Past Medical History Past Medical History: Dementia, Memory Impairment, Mitral Valve Prolapse (MVP), Skin Disorder Additional Past Medical History / Comment(s): recent scabies History of Any Multi-Drug Resistant Organisms: Unobtainable Past Surgical History: Unable to Obtain Past Anesthesia/Blood Transfusion Reactions: No Reported Reaction Past Psychological History: Unable to Obtain Smoking Status: Former smoker Past Alcohol Use History: Unable to Obtain Past Drug Use History: Unable to Obtain - Past Family History Father Family Medical History: Memory Impairment Mother Family Medical History: Unable to Obtain General Exam - General Exam Comments Initial Comments: GENERAL: Patient is well-developed and well-nourished. Patient is nontoxic and well- hydrated and is in mild distress. ENT: Neck is soft and supple. No significant lymphadenopathy is noted. Oropharynx is clear. Moist mucous membranes. Neck has full range of motion without eliciting any pain. EYES: The sclera were anicteric and conjunctiva were pink and moist. Extraocular movements were intact and pupils were equal round and reactive to light. Eyelids were unremarkable. PULMONARY: Unlabored respirations. Good breath sounds bilaterally. No audible rales rhonchi or wheezing was noted. CARDIOVASCULAR: Patient is a regular rate and rhythm ABDOMEN: Soft and nontender with normal bowel sounds. No palpable organomegaly was noted. There is no palpable pulsatile mass. SKIN: Skin is clear with no lesions or rashes and otherwise unremarkable. NEUROLOGIC: Patient is alert and oriented x3. Cranial nerves II through XII are grossly intact. Motor and sensory are also intact. Normal speech, volume and content. Symmetrical smile. MUSCULOSKELETAL: Normal extremities with adequate strength and full range of motion. LYMPHATICS: No significant lymphadenopathy is noted PSYCHIATRIC: Normal psychiatric evaluation. Limitations: no limitations Course Vital Signs 12/22/18 12/22/18 17:42 18:57 Temperature 98.6 F Pulse Rate 63 62 Respiratory 20 16 Rate Blood Pressure 189/100 177/99 O2 Sat by Pulse 97 100 Oximetry Medical Decision Making - Medical Decision Making EKG shows sinus bradycardia 50 bpm SC interval is on a 42 QRS is 70 QT interval 452 QTC is 443 per patient's EKG shows no ST segment elevation or depression or T wave abnormalities are noted. Chest x-ray shows no acute normalities. I spoke with Dr. Goodson he agreed to be the patient admitted the patient I wrote admitting orders. I consult to cardiology Cardiology. - Lab Data Result diagrams: 12/22/18 18:12 12/22/18 18:12 Lab Results 12/22/18 12/22/18 12/22/18 Range/Units 18:12 18:12 18:12 WBC 7.1 (3.8-10.6) k/uL RBC 4.34 (3.80-5.40) m/uL Hgb 13.0 (11.4-16.0) gm/dL Hct 40.5 (34.0-46.0) % MCV 93.2 (80.0-100.0) fL MCH 30.0 (25.0-35.0) pg MCHC 32.2 (31.0-37.0) g/dL RDW 14.2 (11.5-15.5) % Plt Count 285 D (150-450) k/uL Neutrophils % 72 % Lymphocytes % 18 % Monocytes % 6 % Eosinophils % 1 % Basophils % 1 % Neutrophils # 5.1 (1.3-7.7) k/uL Lymphocytes # 1.3 (1.0-4.8) k/uL Monocytes # 0.4 (0-1.0) k/uL Eosinophils # 0.1 (0-0.7) k/uL Basophils # 0.1 (0-0.2) k/uL PT 10.0 (9.0-12.0) sec INR 0.9 (<1.2) APTT 22.5 (22.0-30.0) sec Sodium 138 (137-145) mmol/L Potassium 4.6 (3.5-5.1) mmol/L Chloride 103 (98-107) mmol/L Carbon Dioxide 28 (22-30) mmol/L Anion Gap 7 mmol/L BUN 12 (7-17) mg/dL Creatinine 0.70 (0.52-1.04) mg/dL Est GFR (CKD-EPI)AfAm >90 (>60 ml/min/1.73 sqM) Est GFR (CKD-EPI)NonAf 81 (>60 ml/min/1.73 sqM) Glucose 98 (74-99) mg/dL Calcium 9.4 (8.4-10.2) mg/dL Magnesium 1.9 (1.6-2.3) mg/dL Total Bilirubin 0.7 (0.2-1.3) mg/dL AST 33 (14-36) U/L ALT 27 (9-52) U/L Alkaline Phosphatase 76 (38-126) U/L Troponin I (0.000-0.034) ng/mL Total Protein 6.7 (6.3-8.2) g/dL Albumin 3.9 (3.5-5.0) g/dL 12/22/18 Range/Units 18:12 WBC (3.8-10.6) k/uL RBC (3.80-5.40) m/uL Hgb (11.4-16.0) gm/dL Hct (34.0-46.0) % MCV (80.0-100.0) fL MCH (25.0-35.0) pg MCHC (31.0-37.0) g/dL RDW (11.5-15.5) % Plt Count (150-450) k/uL Neutrophils % % Lymphocytes % % Monocytes % % Eosinophils % % Basophils % % Neutrophils # (1.3-7.7) k/uL Lymphocytes # (1.0-4.8) k/uL Monocytes # (0-1.0) k/uL Eosinophils # (0-0.7) k/uL Basophils # (0-0.2) k/uL PT (9.0-12.0) sec INR (<1.2) APTT (22.0-30.0) sec Sodium (137-145) mmol/L Potassium (3.5-5.1) mmol/L Chloride (98-107) mmol/L Carbon Dioxide (22-30) mmol/L Anion Gap mmol/L BUN (7-17) mg/dL Creatinine (0.52-1.04) mg/dL Est GFR (CKD-EPI)AfAm (>60 ml/min/1.73 sqM) Est GFR (CKD-EPI)NonAf (>60 ml/min/1.73 sqM) Glucose (74-99) mg/dL Calcium (8.4-10.2) mg/dL Magnesium (1.6-2.3) mg/dL Total Bilirubin (0.2-1.3) mg/dL AST (14-36) U/L ALT (9-52) U/L Alkaline Phosphatase (38-126) U/L Troponin I <0.012 (0.000-0.034) ng/mL Total Protein (6.3-8.2) g/dL Albumin (3.5-5.0) g/dL Disposition Clinical Impression: Chest pain Disposition: ADMITTED IP TO THIS HOSP Referrals: Rodolfo Ryan DO [Primary Care Provider] - 1-2 days Time of Disposition: 19:41
[2018-12-22 18:26] LABS: Basophils # (A) 0.1 k/uL (0-0.2); Basophils % (A) 1 %; Eosinophils # (A) 0.1 k/uL (0-0.7); Eosinophils % (A) 1 %; HCT 40.5 % (34.0-46.0); Lymphocytes # (A) 1.3 k/uL (1.0-4.8); Lymphocytes % (A) 18 %; MCHC 32.2 g/dL (31.0-37.0); MCV 93.2 fL (80.0-100.0); Mean Platelet Volume 7.5; Monocytes # (A) 0.4 k/uL (0-1.0); Monocytes % (A) 6 %; Neutrophils # (A) 5.1 k/uL (1.3-7.7); Neutrophils % (A) 72 %; RBC 4.34 m/uL (3.80-5.40); RDW 14.2 % (11.5-15.5); WBC 7.1 k/uL (3.8-10.6)
[2018-12-22 18:31] LABS: Platelet Count 285 k/uL (150-450)
[2018-12-22 18:40] LABS: ALT 27 U/L (9-52); AST 33 U/L (14-36); Albumin 3.9 g/dL (3.5-5.0); Alkaline Phosphatase 76 U/L (38-126); Anion Gap 7 mmol/L; Blood Urea Nitrogen 12 mg/dL (7-17); Calcium 9.4 mg/dL (8.4-10.2); Carbon Dioxide 28 mmol/L (22-30); Chloride 103 mmol/L (98-107); Glucose 98 mg/dL (74-99); Magnesium 1.9 mg/dL (1.6-2.3); Potassium 4.6 mmol/L (3.5-5.1); Sodium 138 mmol/L (137-145); Total Bilirubin 0.7 mg/dL (0.2-1.3); Total Protein 6.7 g/dL (6.3-8.2)
[2018-12-22 18:42] LABS: INR 0.9 (<1.2); Partial Thromboplastin Time 22.5 sec (22.0-30.0)
[2018-12-22] MEDS ORDERED: NITROGLYCERIN SL TABS 0.4 MG TAB SUBLINGUAL PRN (19:42)
--- NOTE | 2018-12-22 19:54 | XR ---
EXAMINATION: XR chest 2V DATE AND TIME: 12/22/2018 7:11 PM CLINICAL INDICATION: PHH; Chest Pain TECHNIQUE: Departmental protocol COMPARISON: None FINDINGS: There is hyperinflation. The lungs are clear. The pleural spaces are negative. The cardiac silhouette is not enlarged. The remainder of the mediastinal silhouette is unremarkable. The skeletal structures and soft tissues are negative for acute findings. IMPRESSION: NO ACUTE PROCESS.
[2018-12-22] MEDS ORDERED: ALPRAZolam 0.5 MG TAB PO SCH (22:30)
[2018-12-22] MEDS: CARVEDILOL 3.125 MG TAB PO SCH (23:04)
[2018-12-23] MEDS: NITROGLYCERIN OINT 1 INCH/GM PACKET TOPICAL SCH ×2 (01:30→04:51)
[2018-12-23 06:34] LABS: Cholesterol 225 mg/dL (<200); HDL Cholesterol 36 mg/dL (40-60); LDL Cholesterol,Calculated 150 mg/dL (0-99); Triglycerides 195 mg/dL (<150)
[2018-12-23 07:38] VITALS: BP 139/80; PULSE 60; RESP 18; TEMP 98.4
[2018-12-23] MEDS ORDERED: ATORVASTATIN 20 MG TAB PO SCH (09:00)
[2018-12-23] MEDS ORDERED: ASPIRIN 325 MG TAB PO SCH (09:00)
[2018-12-23] MEDS: CARVEDILOL 3.125 MG TAB PO SCH (10:30)
[2018-12-23 10:52] VITALS: BMI 18.1
--- NOTE | 2018-12-23 12:53 | P.HPIM ---
History of Present Illness H&P Date: 12/23/18 HISTORY AND PHYSICAL AND DISCHARGE SUMMARY: This is an 83-year-old patient of Dr. Ryan with a past medical history of dementia, anxiety. Patient was brought in by her family regarding chest pain that been going on for half an hour. Patient is unable to provide any information due to her dementia. Patient presented with a blood pressure 189/100, heart rate in the 50s 60s, pulse ox 97% on room air. She was afebrile. CBC and CMP within normal limits. Troponin negative on 3 draws. Triglycerides 195, cholesterol 225, LDL 150, HDL 36. Patient was placed in the observation unit and has been seen by cardiology. They have placed her on atorvastatin but we will plan to discontinue this for home as the risk outweighs benefit. Patient denies having any chest pain at this time. She has been cleared by cardiology for discharge home. Patient will be discharged home in stable condition. Review of Systems All systems: negative Constitutional: Denies chills, Denies fatigue, Denies fever, Denies lethargy, Denies malaise, Denies poor appetite, Denies weakness, Denies weight loss Eyes: denies blurred vision, denies pain Ears, nose, mouth and throat: Denies dysphagia, Denies headache, Denies nasal congestion, Denies nasal discharge, Denies sore throat, Denies vertigo Cardiovascular: Denies chest pain, Denies decreased exercise tolerance, Denies dyspnea on exertion, Denies leg edema, Denies shortness of breath, Denies syncope Respiratory: Denies cough, Denies cough with sputum, Denies dyspnea, Denies excessive sputum, Denies hemoptysis, Denies home oxygen, Denies wheezing Gastrointestinal: Denies abdominal pain, Denies diarrhea, Denies loss of ap petite, Denies nausea, Denies vomiting Genitourinary: Denies dysuria, Denies hematuria Musculoskeletal: Denies frequent falls, Denies myalgias Integumentary: Denies pruritus, Denies rash Neurological: Denies aphasia, Denies change in mentation, Denies change in speech, Denies numbness, Denies seizures, Denies weakness Psychiatric: Denies anxiety, Denies depression Endocrine: Denies fatigue, Denies weight change Past Medical History Past Medical History: Dementia, Memory Impairment, Mitral Valve Prolapse (MVP), Skin Disorder, Syncope Additional Past Medical History / Comment(s): recent scabies History of Any Multi-Drug Resistant Organisms: Unobtainable Past Surgical History: Unable to Obtain Past Anesthesia/Blood Transfusion Reactions: No Reported Reaction Past Psychological History: Unable to Obtain Additional Psychological History / Comment(s): PT. LIVES WITH AND DAUGHTER AND IS NEVER LEFT ALONE, PT. HAS A WALKER AT HOME Smoking Status: Former smoker Past Alcohol Use History: Unable to Obtain Past Drug Use History: Unable to Obtain - Past Family History Father Family Medical History: Memory Impairment Mother Family Medical History: Unable to Obtain Medications and Allergies Home Medications Medication Instructions Recorded Confirmed Type ALPRAZolam [Xanax] 0.5 mg PO HS 12/13/18 12/22/18 History Aspirin EC [Ecotrin Low Dose] 81 mg PO DAILY 12/13/18 12/22/18 History Lisinopril [Zestril] 10 mg PO DAILY 12/13/18 12/22/18 History Vitamin B Complex 1 cap PO DAILY 12/13/18 12/22/18 History Carvedilol [Coreg] 3.125 mg PO BID-W/MEALS #60 tab 12/17/18 12/22/18 Rx Allergies Allergy/AdvReac Type Severity Reaction Status Date / Time No Known Allergies Allergy Verified 12/22/18 18:41 Physical Exam Vitals: Vital Signs Temp Pulse Pulse Pulse Resp BP BP 12/23/18 07:10 98.4 F 60 18 139/80 12/23/18 03:37 61 16 12/23/18 02:05 61 16 12/22/18 23:28 98.2 F 61 16 168/87 12/22/18 22:10 61 16 12/22/18 21:46 98.7 F 57 L 16 173/88 12/22/18 20:12 97.8 F 58 L 16 180/90 12/22/18 18:57 62 16 177/99 12/22/18 17:50 59 L 12/22/18 17:42 98.6 F 63 20 189/100 Pulse Ox 12/23/18 07:10 98 12/23/18 03:37 12/23/18 02:05 12/22/18 23:28 97 12/22/18 22:10 12/22/18 21:46 99 12/22/18 20:12 98 12/22/18 18:57 100 12/22/18 17:50 12/22/18 17:42 97 Intake and Output 12/22/18 12/23/18 12/23/18 22:59 06:59 14:59 Intake Total 490 Balance 490 Intake: IV 10 0.9 10 Oral 480 Other: Voiding Method Toilet Toilet Diaper Diaper Incontinent Incontinent # Voids 1 3 1 Weight 50.802 kg Gen: This is a 83-year-old thin female. She is resting in bed appears to be comfortable and in no acute distress. HEENT: Head is atraumatic, normocephalic. Pupils equal, round. Sclerae is anicteric. NECK: Supple. No JVD. No lymphadenopathy. No thyromegaly. LUNGS: Clear to auscultation. No wheezes or rhonchi. No intercostal retractions. HEART: Regular rate and rhythm. No murmur. No chest wall tenderness. ABDOMEN: Soft. Bowel sounds are present. No masses. No tenderness. EXTREMITIES: No pedal edema. No calf tenderness. NEUROLOGICAL: Patient is awake, alert and oriented x1. Cranial nerves 2 through 12 are grossly intact. Results CBC & Chem 7: 12/22/18 18:12 12/22/18 18:12 Labs: Abnormal Lab Results - Last 24 Hours (Table) 12/23/18 Range/Units 05:44 Triglycerides 195 H (<150) mg/dL Cholesterol 225 H (<200) mg/dL LDL Cholesterol, Calc 150 H (0-99) mg/dL HDL Cholesterol 36 L (40-60) mg/dL Thrombosis Risk Factor Assmnt - Choose All That Apply Any of the Below Risk Factors Present?: No Other Risk Factors: Yes Each Risk Factor Represents 3 Points: Age 75 years or older Other congenital or acquired thrombophilia - If yes, enter type in comment: No Thrombosis Risk Factor Assessment Total Risk Factor Score: 3 Thrombosis Risk Factor Assessment Level: Moderate Risk Assessment and Plan Plan: 1. Chest pain. Acute coronary syndrome ruled out. Chest pain resolved at home. 2. Dementia, stable patient is at her baseline. 3. Hypertension. Continue lisinopril 10 mg daily and Coreg 3.125 mg twice daily. 4. Generalized anxiety disorder. Continue Xanax. Patient will be placed in the observation unit. Discharge Medication List ALPRAZolam [Xanax] 0.5 mg PO HS 12/13/18 [History] Aspirin EC [Ecotrin Low Dose] 81 mg PO DAILY 12/13/18 [History] Lisinopril [Zestril] 10 mg PO DAILY 12/13/18 [History] Vitamin B Complex 1 cap PO DAILY 12/13/18 [History] Carvedilol [Coreg] 3.125 mg PO BID-W/MEALS #60 tab 12/17/18 [Rx] No change in home medications. Discharge plan: Discharge home. Impression and plan of care have been directed as dictated by the signing physician. Lamar Jean Baptiste nurse practitioner acting as scribe for signing physician.
--- NOTE | 2018-12-23 13:38 | CONS ---
CONSULTATION This is an 83-year-old lady with a certain amount of dementia and her history is quite unreliable. As a matter of fact, when I walked in to ask her how she was feeling, she said she is feeling fine and asked me as to why she is here in the hospital, she would like to go home. I have mentioned to her she may probably have some chest pain, but she felt she has absolutely no chest pain. She was here in the hospital with a run of sinus tachycardia when she did not take atenolol and this was earlier this month. She has hypertension under good control and also hyperlipidemia. She is unable to give me any meaningful history. Please refer to the detailed consult by Dr. Álvarez within the last 2 weeks. She has hypertension under good control and also underlying dementia. ALLERGIES: None according to the chart. MEDICATIONS: Medications include carvedilol 3.125 mg b.i.d., lisinopril 10 mg daily, aspirin 81 mg daily and Xanax. PHYSICAL EXAMINATION: On examination, blood pressure is 130/80, pulse rate is 62 per minute, regular. HEENT unremarkable. Fundus was not examined by me. Neck is supple. No JVD. I do not hear a carotid bruit. There is no thyromegaly. Heart exam reveals S1, S2 with a short systolic murmur. No significant gallops. Lungs are clear. Abdomen is soft, nontender. Lower extremities reveal normal pulses. No edema. Central nervous system is grossly without focal deficits. EKG revealed sinus mechanism, poor R-wave progression, which could be related to lead placement. Nonspecific ST abnormality. LABORATORY DATA: Laboratory data revealed that all her troponins are unremarkable. She is resting comfortably without symptoms. Cholesterol is elevated with a LDL of 150. IMPRESSION: The patient does not have any chest pain according to her. The chart says the daughter indicated she had chest pain, but I cannot substantiate or verify this. Her troponins are normal and EKG does not reveal any acute changes. I am recommending that she can be discharged on current medications and follow up with her primary care physician. Since cholesterol is elevated, we should place her on 20 mg of Lipitor daily. Patient can be discharged today. I discussed my thoughts in detail with the patient and also with Dr. Goodson, her primary care physician. Thank you very much for the consult. MMODL / IJN: [id number] /
== END 2018-12-23 10:45 | disposition home or self-care (01) ==
LOC: EC 17:39 → 1SOBS 19:42
PROVIDERS: ADMIT Internal Medicine; ATTEND Internal Medicine
DX: R07.89 Other chest pain (principal); I10 Essential (primary) hypertension; E78.00 Pure hypercholesterolemia, unspecified; I34.1 Nonrheumatic mitral (valve) prolapse; F03.90 Unspecified dementia, unspecified severity, without behavioral disturbance, psychotic disturbance, mood disturbance, and anxiety; L98.9 Disorder of the skin and subcutaneous tissue, unspecified; R32 Unspecified urinary incontinence; F41.1 Generalized anxiety disorder; E78.5 Hyperlipidemia, unspecified; Z79.82 Long term (current) use of aspirin; Z79.899 Other long term (current) drug therapy; Z86.19 Personal history of other infectious and parasitic diseases; Z87.891 Personal history of nicotine dependence; Z86.79 Personal history of other diseases of the circulatory system; Z84.89 Family history of other specified conditions
CPT/HCPCS: 99285; 36415; 93005; 80061; 80053; 83735; 84484 ×2; 85025; 85610; 85730; 71046; G0378 ×2

== ENCOUNTER 2019-02-03 15:35 | Day surgery (SDC) | payer MEDICARE ==
--- NOTE | 2019-02-02 16:48 | HP ---
HISTORY AND PHYSICAL DATE OF SURGERY: 02/03/2019 Brianne Loza is an 83-year-old patient seen with displaced intra-articular right distal radial fracture. I discussed options with the patient and her family. I recommended open reduction, internal fixation. Procedure, risks, complications, benefits and recovery were reviewed. Family was agreeable. Consent was obtained. PAST MEDICAL HISTORY: 1. Dementia. 2. Hypertension. 3. Hypothyroidism. PAST SURGICAL HISTORY: Tubal ligation. DAILY MEDICATIONS: 1. Alprazolam. 2. Carvedilol. 3. Levothyroxine. 4. Lisinopril. ALLERGIES: NONE. SOCIAL HISTORY: She denies current tobacco use. PHYSICAL EVALUATION OF THE RIGHT WRIST: There is tenderness about the distal radius, some diffuse swelling and ecchymosis. Limited range of motion of the wrist with pain. Limited range of motion with finger but no increasing pain. Good sensation perfusion distally. No open wounds. RADIOGRAPHS: Radiographs of the right wrist revealed a displaced intra-articular fracture of the distal radius. IMPRESSION: 1. Displaced intra-articular fracture, right distal radius. 2. Dementia. 3. Hypertension. PLAN: Open reduction, internal fixation of right distal radial fracture. MMODL / IJN: [id number] /
[~2019-02-03 15:35] MED LIST: ceFAZolin IN SWFI 2 GM/20 ML SYRINGE IVP ONE
[2019-02-03] MEDS ORDERED: LIDOCAINE 1% 20 ML VIAL (10MG/ML) FOR IV START INTRADERMA ONE (16:45)
[2019-02-03] MEDS ORDERED: LACTATED RINGERS 1,000 ML IV ONE ×2 (16:47→18:35)
[2019-02-03] MEDS ORDERED: fentaNYL (PF) 50 MCG/ML 2 ML AMP IVP ONE (16:54)
[2019-02-03] MEDS ORDERED: MIDAZOLAM (PF) 2 MG/2 ML VIAL IVP ONE (16:54)
[2019-02-03] MEDS ORDERED: HYDROmorphone 0.5 MG/0.5 ML SYRINGE IVP PRN ×2 (16:56→18:37)
[2019-02-03] MEDS ORDERED: HYDROcodone/APAP 5-325MG 1 EACH TAB PO PRN (16:56)
[2019-02-03] MEDS ORDERED: ONDANSETRON 4 MG/2 ML VIAL IVP PRN (16:56)
[2019-02-03] MEDS ORDERED: ONDANSETRON 4 MG/2 ML VIAL IVP ONE ×2 (17:00→18:37)
[2019-02-03] MEDS ORDERED: DEXAMETHASONE SOD PHOSPHATE 10 MG/ML 1 ML VIAL IV ONE ×2 (17:00→18:37)
[2019-02-03] MEDS ORDERED: ACETAMINOPHEN TAB 325 MG TAB PO PRN (17:01)
[2019-02-03] MEDS ORDERED: KETAMINE 10 MG/ML 20 ML VIAL ONE (17:02)
[2019-02-03] MEDS ORDERED: MIDAZOLAM 2 MG/2 ML VIAL ONE (17:02)
[2019-02-03] MEDS ORDERED: ceFAZolin 1,000 MG in SODIUM CHLORIDE 0.9% 1,000 ML IRRIGATION ONE (17:35)
--- NOTE | 2019-02-03 18:13 | P.OP ---
Date of Procedure: 02/03/19 Preoperative Diagnosis: Displaced intra-articular right distal radius fracture Postoperative Diagnosis: Same Procedure(s) Performed: Open reduction and internal fixation right distal radius fracture Implants: Synthes distal volar wrist plate with appropriate distal smooth pegs and 2 proximal screws Anesthesia: regional (Supraclavicular block) Surgeon: Alexander Donohue Stitch Bonding Machine Tender #1: Handy Mcadams Estimated Blood Loss (ml): 5 Pathology: none sent Condition: stable Disposition: PACU Indications for Procedure: 83-year-old patient seen with a displaced intra-articular distal radius fracture. I recommended open reduction and internal fixation. The family was agreeable. Consent was obtained. Operative Findings: see description of procedure Description of Procedure: The patient was taken to the operative suite. The patient had undergone a supraclavicular block by the department of anesthesia. A well-padded tourniquet placed proximal right upper extremity. The right upper extremity was prepped and draped in the normal sterile orthopedic fashion. The patient received preoperative IV antibiotics. The extremity was elevated and tourniquet insufflated to 250. I now made a standard distal volar wrist incision sharply through skin. I dissected down through the fascia. A plane was created down to the distal radius. The fracture was identified. Hematoma evacuated. Sukumar CLIFFORD assisted with retraction to visualize the fracture. The fracture was reduced. Sukumar CLIFFORD helped hold the fracture anatomically reduced. I now secured a distal volar wrist plate and secured the central screw. C-arm was brought in confirming adequate position of the plate and good reduction of fracture. I now introduced 5 smooth pegs distally and one additional proximal screw all seemingly had good purchase. The C-arm was brought back into the operative field noting adequate alignment of both the fracture and the internal fixation. Spot films were obtained to document that. The wound was irrigated. We had good hemostasis. The subcu soft tissues were approximated 2-0 Vicryl. The skin is. With 3-0 nylon. The tourniquet was released with immediate cap illary refill of all digits noted. Sterile dressings were applied. I now applied a padded distal volar wrist splint. The patient was awakened and transferred to recovery stable condition. Sukumar CLIFFORD assisted procedure.
[2019-02-03] MEDS ORDERED: MIDAZOLAM 2 MG/2 ML VIAL IV PRN (18:37)
[2019-02-03] MEDS ORDERED: LIDOCAINE 1% 20 ML VIAL (10MG/ML) FOR IV START INTRADERMA PRN (18:37)
[2019-02-03] MEDS ORDERED: LACTATED RINGERS 1,000 ML IV SCH (18:37)
[2019-02-03] MEDS ORDERED: SCOPOLAMINE 1.5MG/72HR PATCH TRANSDERM ONE (18:37)
[2019-02-03 19:27] VITALS: BMI 17.0
[2019-02-03] MEDS: CARVEDILOL 3.125 MG TAB PO SCH (19:46)
[2019-02-03] MEDS: ALPRAZolam 0.5 MG TAB PO PRN (23:11)
[2019-02-04] MEDS: ceFAZolin IN SWFI 2 GM/20 ML SYRINGE IVP SCH ×2 (00:20→08:15)
--- NOTE | 2019-02-04 06:26 | FL ---
EXAMINATION TYPE: FL guidance operating room, XR wrist limited RT DATE OF EXAM: 02/03/2019 CLINICAL HISTORY: Right wrist fracture. TECHNIQUE: Fluoroscopy. Limited 2 intraoperative views right wrist. COMPARISON: None. FINDINGS: Fluoroscopic guidance was provided during open reduction internal fixation procedure perfo rmed by Dr. Donohue. A total of 1 second of fluoroscopic time was utilized during the procedure an d two spot intraoperative images are acquired. Intraoperative images acquired show placement of dorsal fixating plate distal radius through the frac ture, alignment is satisfactory on the intraoperative images obtained. IMPRESSION: As Above.
--- NOTE | 2019-02-04 06:49 | P.ANPRN ---
Procedure Note - Anesthesia - Nerve Block Performed Right Supraclavicular Single Time Out Performed: Yes Date of Procedure: 02/03/19 Procedure Start Time: 15:30 Procedure Stop Time: 15:35 Location of Patient Procedure: PreOp Indication: Acute Post-Operative Pain, Analgesia, Dx/Pain Location, Requested by physician Sedation Type: Sedate with meaningful contact maintained Position: Supine Catheter: None Needle Types: On-Q Needle Gauge: 20 Technique: Ultrasound Injectate: 0.5% Ropivacaine (see comment for volume) Blood Aspirated: No Pain Paresthesia on Injection Noted: No Resistance on Injection: Normal Events: Uneventful and Well Tolerated (20 ml)
[2019-02-04 07:39] VITALS: BP 174/79; PULSE 64; RESP 16; TEMP 97.5
[2019-02-04] MEDS: CARVEDILOL 3.125 MG TAB PO SCH (08:16)
[2019-02-04] MEDS: ALPRAZolam 0.5 MG TAB PO PRN (08:16)
[2019-02-04] MEDS ORDERED: ASPIRIN 81 MG PO SCH (09:00)
[2019-02-04] MEDS ORDERED: LISINOPRIL 10 MG TAB PO SCH (09:00)
--- NOTE | 2019-02-04 11:06 | P.PN ---
Subjective Progress Note Date: 02/04/19 Principal diagnosis: Status post ORIF right distal radius fracture Patient evaluated bedside today, she is resting comfortably. Her pain is well- controlled. She denies any chest pain or shortness of breath at this time. Objective - Vital Signs Vital signs: Vital Signs Temp 97.5 F L 02/04/19 07:00 Pulse 64 02/04/19 07:00 Resp 16 02/04/19 07:00 BP 174/79 02/04/19 07:00 Pulse Ox 98 02/04/19 07:00 Intake & Output 02/03/19 02/04/19 02/04/19 18:59 06:59 18:59 Intake Total 901 Output Total 5 Balance 896 Weight 47.847 kg Intake: IV 901 Output: Estimated Blood Loss 5 Other: # Voids 1 1 - Exam Right upper extremity: Postop splint is in good position and condition. Minimal soft tissue swelling in the fingers. She is able to wiggle all the fingers minimal difficulty. Her sensation to light touch is intact. Cap refills less than 2 seconds. Assessment and Plan Plan: Assessment: Postoperative day 1 status post ORIF right distal radius fracture Plan: Pain control, [id number] Tylenol as needed, we'll prescribe tramadol 50 mg every 6 hours, okay to cut tablets in half Cast instructions were provided in chart and explained to family Plan for [facility]-up at [facility] 2 weeks Time with Patient: Less than 30
--- NOTE | 2019-02-04 11:13 | P.DS ---
Providers Date of admission: 02/03/2019 Expected date of discharge: 02/04/19 Attending physician: Alexander Donohue Primary care physician: [facility] Course: Date of admission: 02/03/2019 Date of discharge: 02/04/2019 Admission diagnosis: Status post ORIF right distal radius fracture Discharge diagnosis: Same Attending physician: Dr. Donohue Surgical procedures: ORIF right distal radius fracture Brief history: Patient is a 83-year-old female who was evaluated in the outpatient setting for a right wrist injury. It was determined she had a displaced intra-articular right distal radius fracture. He was determined patient will need surgical intervention. Patient was scheduled for an ORIF of the right distal radius fracture by Dr. Donohue on 02/03/2019. Hospital course: Details of patient's surgery can be found in operative report. Patient tolerated the procedure well and was subsequently transported to orthopedic floor. Patient's orthopeidc and medical care was provided daily. Patient had daily laboratory tests performed for evaluation of overall blood counts. Patient was noted to have a relatively uneventful postoperative course. Patient reported satisfactory pain control with oral pain medications by postoperative day 0. Patient showed satisfactory progress with physical therapy. Patient moved steadily through the program and had no difficulty meeting the goals by postoperative day 1. Given patient's otherwise satisfactory course and having met physical therapy goals, plan is to discharge patient home on postoperative day 1. Discharge condition/disposition: Patient will be discharged home in stable condition. Discharge medications: Instructions are given on resumption of patient's normal daily medications per primary care recommendation, in addition patient will be prescribed tramadol 50 mg. Discharge instructions: 1. Tramadol 50 mg as needed, ok to cut tablet in half 2. Keep splint clean and dry, keep splint covered while showering 3. Avoid excess use of right upper extremity 4. Follow up in office at 2 weeks postop with Sukumar Mcadams PA-C 5. Contact [facility] with any questions, . Procedures: Open reduction internal fixation right distal radius fracture Patient Condition at Discharge: Good Plan - Discharge Summary New Discharge Prescriptions: New traMADol HCl [Ultram] 50 mg PO Q6H PRN #28 tab PRN Reason: Pain No Action Aspirin EC [Ecotrin Low Dose] 81 mg PO DAILY Lisinopril [Zestril] 10 mg PO DAILY ALPRAZolam [Xanax] 0.5 mg PO HS PRN MDD 2 PRN Reason: Insomnia Carvedilol [Coreg] 3.125 mg PO BID-W/MEALS #60 tab Levofloxacin [Levaquin] 500 mg PO DAILY Discharge Medication List ALPRAZolam [Xanax] 0.5 mg PO HS PRN MDD 2 12/13/18 [History] Aspirin EC [Ecotrin Low Dose] 81 mg PO DAILY 12/13/18 [History] Lisinopril [Zestril] 10 mg PO DAILY 12/13/18 [History] Carvedilol [Coreg] 3.125 mg PO BID-W/MEALS #60 tab 12/17/18 [Rx] Levofloxacin [Levaquin] 500 mg PO DAILY 02/03/19 [History] traMADol HCl [Ultram] 50 mg PO Q6H PRN #28 tab 02/04/19 [Rx] Follow up Appointment(s)/Referral(s): Handy Mcadams PAC [PHYSICIAN DISEASE MANAGEMENT NURSE] - 2 Weeks Activity/Diet/Wound Care/Special Instructions: Orthopedic discharge instructions: 1. Pain medication as needed, okay to cut tablets in half 2. [id number] Tylenol or Motrin as needed 3. Keep splint clean and dry, do not remove. Keep covered while showering 4. Contact [facility] any questions 5. Plan for follow-up in 2 weeks Discharge Disposition: HOME SELF-CARE
== END 2019-02-04 12:34 | disposition home or self-care (01) ==
LOC: OR 15:35 → 4MS4W 18:16 → OR 02-04 12:34
PROVIDERS: ATTEND Orthopaedic Surgery
DX: S52.571A Other intraarticular fracture of lower end of right radius, initial encounter for closed fracture (principal); F03.90 Unspecified dementia, unspecified severity, without behavioral disturbance, psychotic disturbance, mood disturbance, and anxiety; I10 Essential (primary) hypertension; E03.9 Hypothyroidism, unspecified; F17.210 Nicotine dependence, cigarettes, uncomplicated; I34.1 Nonrheumatic mitral (valve) prolapse; R55 Syncope and collapse; Z79.899 Other long term (current) drug therapy; Z79.890 Hormone replacement therapy
CPT/HCPCS: 73100; 25608; 64415; C1713; J2250 ×2; J1100; J2405; J0690 ×3; J3010